=== PATIENT | female | born 1940 | race Hispanic/Latino ===

== ENCOUNTER 2016-10-20 15:24 | Inpatient (IN) | payer MEDICARE, BC ==
[2016-10-20 16:34] LABS: BASO # 0.1 K/uL (0.0-0.2); EOS # 0.2 K/uL (0.0-0.7); EOS % 2.1 % (0.0-4.0); HEMATOCRIT 38.7 % (34.0-47.0); LYMPH # 1.1 K/uL (1.0-4.3); LYMPH % 14.8 % (20.0-40.0); MEAN CELL VOLUME 85.4 fL (81.0-99.0); MEAN CORPUSCULAR HEMOGLOBIN 29.4 pg (27.0-31.0); MEAN CORPUSCULAR HGB CONC 34.4 g/dL (33.0-37.0); MEAN PLATELET VOLUME 8.4 fL (7.2-11.7); MONO # 0.4 K/uL (0.0-0.8); MONO % 5.4 % (0.0-10.0); RED CELL DISTRIBUTION WIDTH 14.8 % (11.5-14.5); WHITE BLOOD COUNT 7.5 K/uL (4.8-10.8)
[2016-10-20 16:44] LABS: CHLORIDE 105 mmol/L (98-107); POTASSIUM 3.7 mmol/L (3.6-5.2); SODIUM 144 mmol/L (132-148)
[2016-10-20 16:46] LABS: ALB/GLOB RATIO 1.3 (1.0-2.1); ALKALINE PHOSPHATASE 115 U/L (38-126); ALT/SGPT 13 U/L (9-52); AST/SGOT 20 U/L (14-36); BILIRUBIN,TOTAL 0.5 mg/dL (0.2-1.3); BLOOD UREA NITROGEN 17 mg/dL (7-17); CARBON DIOXIDE 24 mmol/L (22-30); GFR AFRICAN-AMERICAN > 60; GLUCOSE,RANDOM 106 mg/dL (65-105); TOTAL PROTEIN 6.5 g/dL (6.3-8.3)
[2016-10-20 16:47] LABS: CALCIUM 8.7 mg/dl (8.6-10.4)
[2016-10-20 16:54] LABS: RBC URINE 12 /hpf (0-3); TRANSITIONAL EPITHIAL < 1 /hpf (0-3); URINE BACTERIA MANY (<OCC); URINE BILIRUBIN NEGATIVE (NEGATIVE); URINE BLOOD 2+ (NEGATIVE); URINE COLOR Yellow (YELLOW); URINE GLUCOSE (UA) NORMAL (Normal); URINE KETONE NEGATIVE (NEGATIVE); URINE LEUKOCYTE ESTERASE 3+ Leu/uL (Negative); URINE PROTEIN 1+ mg/dL (NEGATIVE); URINE UROBILINOGEN NORMAL mg/dL (0.2-1.0); WBC CLUMPS FEW /hpf; WBC URINE 173 /hpf (0-5)
[2016-10-20] MEDS ORDERED: Iodixanol 320 MG/ML 100 ML BOTTLE IV ONE (17:13)
--- NOTE | 2016-10-20 17:16 | C.PDOC ---
History Of Present Illness 76 y/o female presents to ED for evaluation after syncopal episode. Patient states she was walking down the stairs and started to feel lightheaded, sat down and syncopized for "several minutes". Patient reports that after she woke up she felt pain on left side of chest radiating to her neck. Last syncopal episode was in 2014. Patient has remote history of PE for which she was on blood thinners, currently resolved and no longer on blodo thinner. Patient denies palpitations, visual changes, sensory changes, facial droop, extremity weakness, headache, SOB. Time Seen by Provider: 10/20/16 15:59 Chief Complaint (Nursing): Syncope History Per: Patient History/Exam Limitations: no limitations Onset/Duration Of Symptoms: Hrs Current Symptoms Are (Timing): Better Activity At Onset Of Symptoms: Sitting Associated Symptoms Preceding Syncopal Episode: Lightheadedness Severity: Mild - Symptoms Of CVA Associated Symptoms: denies: Impaired Speech, Seizure Activity, New Vision Deficit(Left), New Vision Deficit(Right), Decreased Ability To Walk, New Confusion Past Medical History Reviewed: Historical Data, Nursing Documentation, Vital Signs Vital Signs: Last Vital Signs Temp 98.3 F 10/27/16 06:40 Pulse 75 10/27/16 07:40 Resp 20 10/27/16 06:40 BP 145/89 10/27/16 06:40 Pulse Ox 96 10/27/16 06:40 - Medical History PMH: COPD, Kidney Stones, Pulmonary Embolism Family History: States: No Known Family Hx - Social History Hx Alcohol Use: No Hx Substance Use: No - Immunization History Hx Tetanus Toxoid Vaccination: No Hx Influenza Vaccination: No Hx Pneumococcal Vaccination: No Review Of Systems Except As Marked, All Systems Reviewed And Found Negative. Constitutional: Negative for: Fever, Chills Eyes: Negative for: Vision Change Cardiovascular: Positive for: Chest Pain. Negative for: Palpitations Respiratory: Negative for: Cough, Shortness of Breath Gastrointestinal: Negative for: Nausea, Vomiting, Abdominal Pain Musculoskeletal: Positive for: Neck Pain Skin: Negative for: Rash Neurological: Positive for: Other (syncope). Negative for: Weakness, Numbness, Altered Mental Status, Headache, Dizziness Physical Exam - Physical Exam Appears: Well, Non-toxic, No Acute Distress Skin: Normal Color, Warm, Dry, No Rash Head: Atraumatic, Normacephalic Eye(s): bilateral: Normal Inspection, PERRL, EOMI Oral Mucosa: Moist Neck: Normal, Normal ROM, No Midline Cervical Tenderness, No Paracervical Tenderness, No Step Off Deformity, Supple Chest: Symmetrical Cardiovascular: Rhythm Regular Respiratory: Normal Breath Sounds, No Rales, No Rhonchi, No Wheezing Gastrointestinal/Abdominal: Normal Exam, Bowel Sounds, Soft, No Tenderness Extremity: Normal ROM, No Pedal Edema, No Calf Tenderness Extremity: Bilateral: Atraumatic, Normal Color And Temperature, Normal ROM Pulses: Left Dorsalis Pedis: Normal, Right Dorsalis Pedis: Normal Neurological/Psych: Oriented x3, Normal Speech, Normal Cognition, Normal Cranial Nerves, No Cerebellar Signs, Normal Motor, Normal Sensation, Normal Reflexes, No Dysarthria, No Romberg ED Course And Treatment - Laboratory Results Result Diagrams: 10/27/16 07:00 10/27/16 07:00 ECG: Interpreted By Me, Viewed By Me (NSR 88 bpm, normal axis, 1mm ST depression II, III, aVF) ECG Rhythm: Sinus Rhythm ECG Interpretation: Abnormal Rate From EC (bpm) O2 Sat by Pulse Oximetry: 95 (RA) Pulse Ox Interpretation: Normal Progress Note: Blood work, CT head/CTA chest, EKG ordered and reviewed. ASA PO given after CT head (-) for bleed. Reevaluation Time: 18:35 Reassessment Condition: Improved (Patient reassessed, is currently resting comfortably. She states she feels some occasional tingling/soreness on left side of neck/face. She also states for the past several weeks, she sometimes sees different colors (green, red, blue) in her left eye/visual field.) - Physician Consult Information Physician Contacted: Rosa M Do Outcome Of Conversation: Discussed patient with medicine transportation coordinator, she agrees with admission for syncope, abnormal EKG, UTI. Medical Decision Making Medical Decision Making: differential diagnoses considered: cardiogenic syncope, arrythmia, PE, OH/ACS, seizure, dehydration, renal failure, CVA/TIA Disposition - Disposition Disposition: HOSPITALIZED Disposition Time: 18:30 Condition: STABLE - Clinical Impression Clinical Impression: Syncope, UTI (urinary tract infection), Abnormal EKG - Scribe Statement The provider has reviewed the documentation as recorded by the Scribe Neena Trujillo All medical record entries made by the Scribe were at my direction and personally dictated by me. I have reviewed the chart and agree that the record accurately reflects my personal performance of the history, physical exam, medical decision making, and the department course for this patient. I have also personally directed, reviewed, and agree with the discharge instructions and disposition. Decision To Admit - Pt Status Changed To: Hospital Disposition Of: Inpatient - Admit Certification Admit to Inpatient:: After my assessment, the patient will require hospitalization for at least two midnights. This is because of the severity of symptoms shown, intensity of services needed, and/or the medical risk in this patient being treated as an outpatient. - InPatient: Physician Admission Certification: I certify that this patient requires 2 or more midnights of care for the following reason:: see notes - . Bed Request Type: Telemetry Admitting Physician: Rosa M Do Patient Diagnosis: Syncope, UTI (urinary tract infection), Abnormal EKG
--- NOTE | 2016-10-20 17:59 | CT ---
PROCEDURE: CT HEAD WITHOUT CONTRAST. HISTORY: syncope, headache COMPARISON: None available. TECHNIQUE: Axial computed tomography images were obtained through the head/brain without intravenous contrast. Radiation dose: Total exam DLP = 810.83 mGy-cm. This CT exam was performed using one or more of the following dose reduction techniques: Automated exposure control, adjustment of the mA and/or kV according to patient size, and/or use of iterative reconstruction technique. FINDINGS: HEMORRHAGE: No intracranial hemorrhage. BRAIN: Diffuse atrophy with prominence of the ventricles and sulci noted. No mass effect or edema. Intracranial atherosclerotic calcifications. Scattered periventricular and subcortical white matter hypodensities, which are nonspecific, but often seen with chronic microvascular ischemic disease. Please note that MRI with diffusion imaging is more sensitive in the detection of acute ischemic event. VENTRICLES: No hydrocephalus. CALVARIUM: Unremarkable. PARANASAL SINUSES: Unremarkable as visualized. No significant inflammatory changes. MASTOID AIR CELLS: Unremarkable as visualized. No inflammatory changes. OTHER FINDINGS: None. IMPRESSION: Generalized atrophy. Nonspecific white matter changes.
--- NOTE | 2016-10-20 18:11 | CT ---
PROCEDURE: CT Chest with contrast (Pulmonary Angiogram) HISTORY: Syncope. Past medical history of pulmonary embolism COMPARISON: None available. TECHNIQUE: Axial computed tomography images were obtained of the chest in the pulmonary arterial phase of enhancement. Coronal and sagittal reformatted images were created and reviewed. Maximum intensity projection (MIP) reconstructed images in the following planes: Coronal and sagittal projections. Intravenous contrast dose: 100 cc Visipaque 320 Mean Hounsfield unit values in the main pulmonary artery: 356.14 Radiation dose: Total exam DLP = 236.14 mGy-cm. This CT exam was performed using one or more of the following dose reduction techniques: Automated exposure control, adjustment of the mA and/or kV according to patient size, and/or use of iterative reconstruction technique. FINDINGS: PULMONARY ARTERIES: Unremarkable. No pulmonary embolism. AORTA: No acute findings. No thoracic aortic aneurysm. LUNGS: Unremarkable. No nodule, mass or pulmonary consolidation. PLEURAL SPACES: Unremarkable. No effusion or pneuomothorax. HEART: Unremarkable. No cardiomegaly. No significant pericardial effusion. LYMPH NODES: No lymphadenopathy. BONES, CHEST WALL: Unremarkable. No fracture or destructive lesion OTHER FINDINGS: Enlarged, heterogeneous thyroid with thyroid nodules particularly in the left lobe. Intrathoracic extension of the left lobe noted. Elective thyroid ultrasound recommended. IMPRESSION: Unremarkable CT pulmonary angiogram. No pulmonary embolus. Enlarged thyroid gland bilaterally which requires further evaluation electively.
[2016-10-20] MEDS ORDERED: Ciprofloxacin 400mg/200ml D5W 400 MG/200 ML BAG IV STA (18:27)
[2016-10-20] MEDS ORDERED: Ciprofloxacin 400mg/200ml D5W 400 MG/200 ML BAG IVPB ONE (19:56)
[2016-10-20] MEDS ORDERED: Ciprofloxacin 200mg/100ml D5W 100 ML IVPB SCH (22:00)
--- NOTE | 2016-10-20 23:51 | US ---
EXAM: US Soft Tissues Head and Neck, Thyroid CLINICAL HISTORY: 76 years old, female; Abnormal findings; Abnormal radiologic study of neck; Additional info: Thyromegally TECHNIQUE: Real-time ultrasound scan of the thyroid gland and soft tissues of the neck with image documentation. COMPARISON: Reference is made to a CT examination of the chest, performed the same day. FINDINGS: The thyroid gland is enlarged and heterogeneous. The right lobe of the thyroid gland measures 5.2 x 2.8 x 2.2 cm in The left lobe of the thyroid gland measures 6.5 x 3.8 x 2.7 cm. Bilateral nodules are detected. The largest on the right is 15 mm in greatest dimension. This nodule is of mixed echogenicity and demonstrates trace vascularity, without microcalcifications. The largest on the left measures 17 mm in greatest dimension. This nodule is also of mixed echogenicity, without increased vascularity or microcalcifications. The isthmus is unremarkable in echogenicity and size measuring 4.2 mm in anterior posterior dimension IMPRESSION: Enlarged heterogeneous thyroid gland. Nodules of mixed echogenicity bilaterally for which followup may be performed.
[2016-10-21 06:58] LABS: IRON 62 ug/dL (37-170)
[2016-10-21 07:08] LABS: BLOOD UREA NITROGEN 16 mg/dL (7-17); CALCIUM 9.1 mg/dl (8.6-10.4); CARBON DIOXIDE 26 mmol/L (22-30); CHLORIDE 106 mmol/L (98-107); GFR AFRICAN-AMERICAN > 60; GLUCOSE,RANDOM 87 mg/dL (65-105); POTASSIUM 3.4 mmol/L (3.6-5.2); SODIUM 142 mmol/L (132-148)
[2016-10-21 07:26] LABS: HEMATOCRIT 40.1 % (34.0-47.0); MEAN CELL VOLUME 85.1 fL (81.0-99.0); MEAN CORPUSCULAR HEMOGLOBIN 28.1 pg (27.0-31.0); MEAN PLATELET VOLUME 8.3 fL (7.2-11.7); RED CELL DISTRIBUTION WIDTH 14.6 % (11.5-14.5); WHITE BLOOD COUNT 8.6 K/uL (4.8-10.8)
[2016-10-21 07:28] LABS: THYROID STIMULATING HORMONE 8.29 mIU/L (0.46-4.68)
[2016-10-21 08:05] LABS: FOLATE 8.6 ng/mL
[2016-10-21] MEDS: Enoxaparin 60 mg Syringe SC SCH (09:02)
[2016-10-21] MEDS ORDERED: Potassium Chloride 20 mEq ER Tab PO ONE (10:00)
--- NOTE | 2016-10-21 12:16 | CP.PCM.PN ---
Subjective - Date & Time of Evaluation Date of Evaluation: 10/21/16 Time of Evaluation: 12:12 Objective - Vital Signs/Intake and Output Vital Signs (last 24 hours): Temp Pulse Resp BP Pulse Ox 98.2 F 99 H 18 166/90 H 95 10/21/16 08:41 10/21/16 08:41 10/21/16 08:41 10/21/16 08:41 10/21/16 08:41 Intake and Output: 10/21/16 10/21/16 06:59 18:59 Intake Total 120 Balance 120 - Medications Medications: Current Medications Aspirin (Ecotrin) 81 mg PO DAILY [facility] Last Admin: 10/21/16 09:02 Dose: 81 mg Enoxaparin Sodium (Lovenox) 60 mg SC DAILY [facility] Last Admin: 10/21/16 09:02 Dose: 60 mg Ciprofloxacin (Cipro 200mg/100ml D5w) 100 mls @ 67 mls/hr IVPB Q12H [facility] Last Admin: 10/21/16 09:02 Dose: 67 mls/hr Pneumococcal Polyvalent Vaccine (Pneumovax 23 Vaccine) 0.5 ml IM .ONCE ONE Stop: 10/23/16 14:01 - Labs Labs: 10/21/16 06:10 10/21/16 06:10 PT 11.2 SECONDS (9.7-12.2) 10/20/16 16:27 INR 1.0 10/20/16 16:27 APTT 32 SECONDS (21-34) 10/20/16 16:27
--- NOTE | 2016-10-21 13:08 | CP.PCM.CON ---
History of Present Illness - History of Present Illness History of Present Illness: INFECTIOUS DISEASE CONSULT; HPI; 76 y/o female presents to ED for evaluation after syncope episode. Patient states she was walking down the stairs and started to feel lightheaded sat down and syncopized for several minutes. Patient reports that after she woke up she felt pain on left side of chest radiating to neck. Last syncope episode was in 2014 and patient has remote history of PE for which she was on blood thinners and resolved. Patient denies currently being on blood thinners, palpitations, visual changes, sensory changes, facial drooping or any other complaints at this time. Patient gives history off kidney stones and hematuria in 2014. Also states she has past few stones since then. Patient denies any hematuria now or passage of any stones or gravel. Patient also complains of pain left flank region intermittently. Patient also complains off low-grade temperatures and subjective fevers.Patient presently complains off frequency,BUT DENIES ANY DYSURIA.. Patient states she was treated for hematuria and left-sided pyelonephritis at [facility] but failed to follow up with urologist since 2014. Patient was started on IV Cipro 200 mg every 12 hourly by the private M.D on admission after appropriate cultures Infectious disease consultation requested by PMD for urosepsis. urine cultures reported positive for gram-negative rods. Allergy; penicillin-gets rash and shortness of breath. PMH: COPD, Kidney Stones, Pulmonary Embolism Family History: States: No Known Family Hx - Social History Hx Alcohol Use: No Hx Substance Use: No - Immunization History Hx Tetanus Toxoid Vaccination: No Hx Influenza Vaccination: No Hx Pneumococcal Vaccination: No Review of Systems - Constitutional Constitutional: Fever. absent: Chills - EENT Eyes: absent: Change in Vision, Floaters Nose/Mouth/Throat: absent: Dry Mouth - Cardiovascular Cardiovascular: Chest Pain, Syncope - Respiratory Respiratory: absent: Cough, Chest Congestion - Gastrointestinal Gastrointestinal: Abdominal Pain (lleft flank pain intermittently.). absent: Nausea, Vomiting - Genitourinary Genitourinary: Flank Pain, Urinary Frequency, Urinary Urgency, Hx Renal/Bladder Calculi - Reproductive: Female Reproductive:Female: Post Menopausal - Neurological Neurological: Syncope. absent: Dizziness, Headaches - Psychiatric Psychiatric: absent: Anxiety - Hematologic/Lymphatic Hematologic: As Per HPI. absent: Easy Bruising, Lymphadenopathy Past Patient History - Past Medical History & Family History Past Medical History?: Yes - Past Social History Smoking Status: Former Smoker - CARDIAC Hx Cardiac Disorders: No Hx Angina: No Hx Atrial Fibrillation: No Hx Cardia Arrhythmia: No Hx Circulatory Problems: No Hx Congestive Heart Failure: No Hx Heart Attack: No Hx Heart Murmur: No Hx Heart Transplant: No Hx Hypercholesterolemia: No Hx Hypertension: No Hx Hypotension: No Hx Internal Defibrillator: No Hx Mitral Valve Prolapse: No Hx Pacemaker: No Hx Peripheral Edema: No Hx Peripheral Vascular Disease: No - PULMONARY Hx Respiratory Disorders: Yes Hx Asthma: No Hx Bronchitis: No Hx Chronic Obstructive Pulmonary Disease (COPD): Yes Hx Emphysema: No Hx Lung Cancer: No Hx Pneumonia: No Hx Pulmonary Edema: No Hx Pulmonary Embolism: Yes Hx Respiratory Aspiration: No Hx Respiratory Tract Infection: No Hx Sleep Apnea: No Hx Tuberculosis: No - NEUROLOGICAL Hx Neurological Disorder: No Hx Alzheimer's Disease: No HX Cerebrovascular Accident: No Hx Dementia: No Hx Dizziness: No Hx Meningitis: No Hx Migraine: No Hx Multiple Sclerosis: No Hx Paralysis: No Hx Parkinson's Disease: No Hx Seizures: No Hx Syncope: Yes Hx Transient Ischemic Attacks (TIA): No Hx Vertigo: No - HEENT Hx HEENT Problems: No Hx Blind: No Hx Cataracts: No Hx Deafness: No Hx Difficulty Chewing: No Hx Epistaxis: No Hx Glaucoma: No Hx Macular Degeneration: No Hx Sinusitis: No - RENAL Hx Chronic Kidney Disease: Yes Hx Dialysis: No Hx Kidney Stones: Yes Hx Neurogenic Bladder: No Hx Pyelonephritis: No Hx Renal (Kidney) Cancer: No Hx Renal Failure: No - ENDOCRINE/METABOLIC Hx Endocrine Disorders: No Hx Adrenal Cancer: No Hx Diabetes Insipidus: No Hx Diabetes Mellitus Type 1: No Hx Diabetes Mellitus Type 2: No Hx Hyperthyroidism: No Hx Hypothyroidism: No Hx Systemic Lupus Erythematosus: No - HEMATOLOGICAL/ONCOLOGICAL Hx Blood Disorders: No Hx AIDS: No Hx Anemia: No Hx Blood Transfusions: No Hx Blood Transfusion Reaction: No Hx Bruising: No Hx Cancer: No Hx Chemotherapy: No Hx Cirrhosis: No Hx Gum Bleeding: No Hx Hemophilia: No Hx Hepatitis A: No Hx Hepatitis B: No Hx Hepatitis C: No Hx Human Immunodeficiency Virus (HIV): No Hx Leukemia: No Hx Metastesis: No Hx Shingles: No Hx Sickle Cell Disease: No Hx Unexplained Bleeding: No Hx von Willebrand's Disease: No - INTEGUMENTARY Hx Dermatological Problems: No Hx Basil Cell: No Hx Kang: No Hx Cellulitis: No Hx Eczema: No Hx Melanoma: No Hx Psoriasis: No Hx Squamous Cell: No - MUSCULOSKELETAL/RHEUMATOLOGICAL Hx Musculoskeletal Disorders: No Hx Arthritis: No Hx Back Pain: No Hx Degenerative Joint Disease: No Hx Falls: Yes Hx Fractures: No Hx Gout: No Hx Herniated Disk: No Hx Myasthenia Gravis: No Hx Osteoarthritis: No Hx Osteomyelitis: No Hx Osteoporosis: No Hx Rhabdomyolysis: No Hx Rheumatoid Arthritis: No Hx Spinal Stenosis: No Hx Unsteady Gait: No - GASTROINTESTINAL Hx Gastrointestinal Disorders: No Hx Bowel Surgery: No Hx Clostridium Difficile: No Hx Colitis: No Hx Colostomy: No Hx Constipation: No Hx Crohn's Disease: No Hx Diarrhea: No Hx Diverticulitis: No Hx Esophageal Varices: No Hx Fatty Liver Disease: No Hx Gall Bladder Disease: No Hx Gastritis: No Hx Gastroesophageal Reflux: No Hx Hemorrhoids: No Hx Ileostomy: No Hx Irritable Bowel: No Hx Liver Failure: No Hx Nausea: No Hx Pancreatitis: No HX Swallowing Problems: No Hx Ulcer: No Hx Vomiting: No - GENITOURINARY/GYNECOLOGICAL Hx Genitourinary Disorders: No Hx Bladder Cancer: No Hx Bladder Stone: No Hx Cervical Cancer: No Hx Hematuria: No Hx Incontinence: No Hx Ovarian Cancer: No Hx Postmenopausal Bleeding: No Hx Reproductive Disorders: No Hx Sexually Transmitted Disorders: No Hx Uterine Cancer: No Hx Urinary Tract Infection: No - PSYCHIATRIC Hx Psychophysiologic Disorder: No Hx Anxiety: No Hx Bipolar Disorder: No Hx Depression: No Hx Emotional Abuse: No Hx Hallucinations: No Hx Panic Symptoms: No Hx Paranoia: No Hx Post Traumatic Stress Disorder: No Hx Psychosis: No Hx Physical Abuse: No Hx Schizophrenia: No Hx Sexual Abuse: No Hx Substance Use: No - SURGICAL HISTORY Hx Surgeries: No Hx Abdominal Aortic Aneurysm Repair: No Hx Amputation: No Hx Angiogram: No Hx Angioplasty: No Hx Appendectomy: No Hx Arteriovenous Shunt: No Hx Arthroscopy: No Hx Bile Duct Stent: No Hx Breast Biopsy: No Hx Cataract Extraction: No Hx Cardiac Catheterization: No Hx Carotid Endarterectomy: No Hx Section: No Hx Cholecystectomy: No Hx Coronary Artery Bypass Graft: No Hx Coronary Stent: No Hx Dilation and Curettage: No Hx Eye Surgery: No Hx Femoral-Popliteal Bypass Graft: No Hx Gastric Bypass Surgery: No Hx Herniorrhaphy: No Hx Hysterectomy: No Hx Joint Replacement: No Hx Kidney Transplant: No Hx Liver Transplant: No Hx Mastectomy: No Hx Musculoskeletal Surgery: No Hx Open Heart Surgery: No Hx Open Reduction Internal Fixation: No Hx Orthopedic Surgery: No Hx Parathyroidectomy: No Hx Penile Implant: No Hx Pulmonary Surgery: No Hx Splenectomy: No Hx Thyroidectomy: No Hx Tonsillectomy: No Hx Tubal Ligation: No Hx Valve Replacement: No Hx Vascular Surgery: No Hx Vascular Access Device: No - ANESTHESIA Hx Anesthesia: Yes Hx Anesthesia Reactions: No Hx Malignant Hyperthermia: No Has any member of the family had a problem w/ anesthesia?: No Meds Allergies/Adverse Reactions: Allergies Allergy/AdvReac Type Severity Reaction Status Date / Time Penicillins Allergy ANAPHYLAXIS Verified 10/20/16 15:36 - Medications Medications: Current Medications Aspirin (Ecotrin) 81 mg PO DAILY [facility] Last Admin: 10/21/16 09:02 Dose: 81 mg Enoxaparin Sodium (Lovenox) 60 mg SC DAILY [facility] Last Admin: 10/21/16 09:02 Dose: 60 mg Ciprofloxacin (Cipro 200mg/100ml D5w) 100 mls @ 67 mls/hr IVPB Q12H [facility] Last Admin: 10/21/16 09:02 Dose: 67 mls/hr Pneumococcal Polyvalent Vaccine (Pneumovax 23 Vaccine) 0.5 ml IM .ONCE ONE Stop: 10/23/16 14:01 Physical Exam - Constitutional Appears: No Acute Distress - Head Exam Head Exam: NORMAL INSPECTION - Eye Exam Eye Exam: EOMI, PERRL - ENT Exam ENT Exam: Mucous Membranes Moist - Neck Exam Neck exam: Positive for: Normal Inspection - Respiratory Exam Respiratory Exam: Clear to Auscultation Bilateral, NORMAL BREATHING PATTERN - Cardiovascular Exam Cardiovascular Exam: REGULAR RHYTHM, +S1, +S2 - GI/Abdominal Exam GI & Abdominal Exam: Normal Bowel Sounds, Soft, Tenderness (left flank on deep palpation.) - Extremities Exam Extremities exam: Positive for: normal capillary refill, pedal pulses present. Negative for: calf tenderness, pedal edema - Back Exam Back exam: CVA tenderness (L) - Neurological Exam Neurological exam: Alert, CN II-XII Intact, Oriented x3, Reflexes Normal - Psychiatric Exam Psychiatric exam: Normal Mood - Skin Skin Exam: Normal Color, Warm Results - Vital Signs Recent Vital Signs: Last Vital Signs Temp 98.2 F 10/21/16 08:41 Pulse 99 H 10/21/16 08:41 Resp 18 10/21/16 08:41 BP 166/90 H 10/21/16 08:41 Pulse Ox 95 10/21/16 08:41 - Labs Result Diagrams: 10/21/16 06:10 10/21/16 06:10 Labs: Laboratory Results - last 24 hr 10/20/16 10/21/16 10/21/16 22:16 06:10 06:10 WBC RBC Hgb Hct MCV MCH MCHC RDW Plt Count MPV Sodium Potassium Chloride Carbon Dioxide Anion Gap BUN Creatinine Est GFR ( Amer) Est GFR (Non-Af Amer) POC Glucose (mg/dL) 90 Random Glucose Hemoglobin A1c Calcium Iron 62 TIBC 286 % Saturation 22 Triglycerides 68 Cholesterol 129 LDL Cholesterol Direct 71 HDL Cholesterol 45 Vitamin B12 235 L Folate 8.6 TSH 3rd Generation 10/21/16 10/21/16 10/21/16 06:10 06:10 06:10 WBC 8.6 RBC 4.71 Hgb 13.2 Hct 40.1 MCV 85.1 MCH 28.1 MCHC 33.0 RDW 14.6 H Plt Count 224 MPV 8.3 Sodium 142 Potassium 3.4 L Chloride 106 Carbon Dioxide 26 Anion Gap 13 BUN 16 Creatinine 0.9 Est GFR ( Amer) > 60 Est GFR (Non-Af Amer) > 60 POC Glucose (mg/dL) Random Glucose 87 Hemoglobin A1c 5.2 Calcium 9.1 Iron TIBC % Saturation Triglycerides Cholesterol LDL Cholesterol Direct HDL Cholesterol Vitamin B12 Folate TSH 3rd Generation 8.29 H - Imaging and Cardiology CT scan - head Status: Report reviewed by me (see report.) Assessment & Plan (1) Syncope and collapse Assessment and Plan: CT head noted-generalized atrophy. Patient seen by neurologist. W/U IN PROGRESS FOR SYNCOPE. pATIENT FOR mri OF THE BRAIN. Status: Acute (2) Pyelonephritis Assessment and Plan: URINE CULTURE 10/20/16 +VE GNR ( IDENTIFICATION PENDING ). DC IV CIPRO. START iv aZACTAM 1 G EVERY 8 HOURLY FOR BROADER GRAM-NEGATIVE COVERAGE . fOLLOW-UP CULTURES TO ADJUST ANTIBIOTICS Status: Acute (3) UTI (urinary tract infection), bacterial Status: Acute (4) Kidney stones Assessment and Plan: ABDOMINAL/RENAL US rule OUT KIDNEY STONES/HYDRONEPHROSIS. Status: Acute (5) History of pulmonary embolism Assessment and Plan: patient had history of pulmonary embolism in 2014. States she was on blood thinners for some time and then discontinued. Status: Acute
[2016-10-21] MEDS: Aztreonam 1 GM in Sodium Chloride 0.9% 100 ML IVPB SCH ×2 (14:02→22:45)
--- NOTE | 2016-10-21 19:19 | CARD ---
APPROVED REPORT EKG Measurement Heart [id number] ID [id number] <Conclusion> Normal sinus rhythm with sinus arrhythmia Nonspecific ST abnormality Abnormal ECG
--- NOTE | 2016-10-22 00:16 | CON ---
NEUROLOGY CONSULTATION REPORT REASON FOR CONSULTATION: Episode of passing out. HISTORY OF PRESENT ILLNESS: The patient is a 76-year-old female, who is here for evaluation of episode of passing out. The patient apparently was walking down the stairs, and all of a sudden, she felt lightheaded and felt everything is draining down her body and she passed out. She was unconscious for a brief period of time. She denied any urinary incontinence or tongue biting. She denied any focal weakness in arms or legs. According to the patient, she had an another episode of passing out in 2014. She denied any chest pain or palpitations associated with episode of passing out. Denies any other complaints. REVIEW OF SYSTEMS: Denies any headache, dizziness, chest pain, shortness of breath, abdominal pain, constipation, diarrhea, dysuria, pyuria, cough, or sputum production. PAST MEDICAL HISTORY: None. HOME MEDICATION: None. ALLERGIES: NO KNOWN DRUG ALLERGIES. SOCIAL HISTORY: Denies current smoking. She is a former smoker. Denies use of alcohol or illicit drugs. FAMILY HISTORY: Reviewed and noncontributory to the case. PHYSICAL EXAMINATION GENERAL: The patient is an elderly female sitting, in no acute distress. VITAL SIGNS: Blood pressure is 166/90, heart rate is 99 per minute, breathing at a rate 16 per minute, and temperature is 98.2 degrees Fahrenheit. HEENT: Head is normocephalic, atraumatic. NECK: Supple. There are no carotid bruits. CARDIOVASCULAR: S1 and S2 audible. No murmurs. LUNGS: Clear. ABDOMEN: Soft and nontender with bowel sounds present. NEUROLOGIC: Mental Status: The patient is awake, alert and oriented to time, place and person. Speech is fluent. Naming and repetition are normal. Memory examination are intact. Cranial Nerve Examination: Pupils are 3 mm bilaterally, reactive to light. Visual chahal are full. Extraocular movements are intact. There is no facial asymmetry. Palate is upgoing bilaterally, and tongue is midline. Motor Examination: Tone is normal, and power is 4-5/5 bilaterally, and all extremity reflexes 1+ and symmetrical. Plantars downgoing bilaterally. Cerebellar examination: [id number] shows no dysmetria. Gait is narrow based. Romberg is negative. Sensory examination is intact to soft touch and pin prick. LABORATORY DATA: Labs reviewed shows WBC of 8.6, hemoglobin 13.2, hematocrit 40.1 and platelets of 224. INR is 1.0. Sodium is 142, potassium 3.4, chloride of 106, carbon dioxide 26, BUN of 16 and creatinine of 0.9 and glucose of 87. She had urinalysis done which shows WBC of 173. She had a CT scan of the head done, which shows generalized atrophy, nonspecific white matter changes. IMPRESSION: 1. Syncope, rule out seizure versus cardiac arrhythmias. 2. Urinary tract infection. RECOMMENDATIONS: 1. The patient to have MRI of the brain without contrast. 2. The patient is also to have electroencephalogram. 3. The patient to have cardiac monitoring to rule out any cardiac arrhythmias. 4. The patient will be continued on antibiotics for underlying urinary tract infection. 5. Please continue other treatment and supportive care. Thank you for the opportunity to participate in the care of this patient. Abdulaziz Mcdonnell MD
--- NOTE | 2016-10-22 01:20 | CP.PCM.HP ---
History of Present Illness - History of Present Illness History of Present Illness: 10/21/16 History Of Present Illness 76 y/o female presents to ED for evaluation after syncope episode. Patient states she was walking down the stairs and started to feel lightheaded sat down and syncopized for several minutes. Patient reports that after she woke up she felt pain on left side of chest radiating to neck. Last syncope episode was in 2014 and patient has remote history of PE for which she was on blood thinners and resolved. Patient denies currently being on blood thinners, palpitations, visual changes, sensory changes, facial drooping or any other complaints at this time. Present on Admission - Present on Admission Any Indicators Present on Admission: No History of DVT/PE: Yes Review of Systems - Constitutional Constitutional: As Per HPI - EENT Eyes: As Per HPI Ears: As Per HPI - Breasts Breasts: As Per HPI - Cardiovascular Cardiovascular: As Per HPI - Respiratory Respiratory: As Per HPI - Genitourinary Genitourinary: As Per HPI - Integumentary Integumentary: As Per HPI - Neurological Neurological: As Per HPI - Psychiatric Psychiatric: As Per HPI - Endocrine Endocrine: As Per HPI - Hematologic/Lymphatic Hematologic: As Per HPI Past Patient History - Past Medical History & Family History Past Medical History?: Yes - Past Social History Smoking Status: Former Smoker - CARDIAC Hx Cardiac Disorders: No Hx Angina: No Hx Atrial Fibrillation: No Hx Cardia Arrhythmia: No Hx Circulatory Problems: No Hx Congestive Heart Failure: No Hx Heart Attack: No Hx Heart Murmur: No Hx Heart Transplant: No Hx Hypercholesterolemia: No Hx Hypertension: No Hx Hypotension: No Hx Internal Defibrillator: No Hx Mitral Valve Prolapse: No Hx Pacemaker: No Hx Peripheral Edema: No Hx Peripheral Vascular Disease: No - PULMONARY Hx Respiratory Disorders: Yes Hx Asthma: No Hx Bronchitis: No Hx Chronic Obstructive Pulmonary Disease (COPD): Yes Hx Emphysema: No Hx Lung Cancer: No Hx Pneumonia: No Hx Pulmonary Edema: No Hx Pulmonary Embolism: Yes Hx Respiratory Aspiration: No Hx Respiratory Tract Infection: No Hx Sleep Apnea: No Hx Tuberculosis: No - NEUROLOGICAL Hx Neurological Disorder: No Hx Alzheimer's Disease: No HX Cerebrovascular Accident: No Hx Dementia: No Hx Dizziness: No Hx Meningitis: No Hx Migraine: No Hx Multiple Sclerosis: No Hx Paralysis: No Hx Parkinson's Disease: No Hx Seizures: No Hx Syncope: Yes Hx Transient Ischemic Attacks (TIA): No Hx Vertigo: No - HEENT Hx HEENT Problems: No Hx Blind: No Hx Cataracts: No Hx Deafness: No Hx Difficulty Chewing: No Hx Epistaxis: No Hx Glaucoma: No Hx Macular Degeneration: No Hx Sinusitis: No - RENAL Hx Chronic Kidney Disease: Yes Hx Dialysis: No Hx Kidney Stones: Yes Hx Neurogenic Bladder: No Hx Pyelonephritis: No Hx Renal (Kidney) Cancer: No Hx Renal Failure: No - ENDOCRINE/METABOLIC Hx Endocrine Disorders: No Hx Adrenal Cancer: No Hx Diabetes Insipidus: No Hx Diabetes Mellitus Type 1: No Hx Diabetes Mellitus Type 2: No Hx Hyperthyroidism: No Hx Hypothyroidism: No Hx Systemic Lupus Erythematosus: No - HEMATOLOGICAL/ONCOLOGICAL Hx Blood Disorders: No Hx AIDS: No Hx Anemia: No Hx Blood Transfusions: No Hx Blood Transfusion Reaction: No Hx Bruising: No Hx Cancer: No Hx Chemotherapy: No Hx Cirrhosis: No Hx Gum Bleeding: No Hx Hemophilia: No Hx Hepatitis A: No Hx Hepatitis B: No Hx Hepatitis C: No Hx Human Immunodeficiency Virus (HIV): No Hx Leukemia: No Hx Metastesis: No Hx Shingles: No Hx Sickle Cell Disease: No Hx Unexplained Bleeding: No Hx von Willebrand's Disease: No - INTEGUMENTARY Hx Dermatological Problems: No Hx Basil Cell: No Hx Kang: No Hx Cellulitis: No Hx Eczema: No Hx Melanoma: No Hx Psoriasis: No Hx Squamous Cell: No - MUSCULOSKELETAL/RHEUMATOLOGICAL Hx Musculoskeletal Disorders: No Hx Arthritis: No Hx Back Pain: No Hx Degenerative Joint Disease: No Hx Falls: Yes Hx Fractures: No Hx Gout: No Hx Herniated Disk: No Hx Myasthenia Gravis: No Hx Osteoarthritis: No Hx Osteomyelitis: No Hx Osteoporosis: No Hx Rhabdomyolysis: No Hx Rheumatoid Arthritis: No Hx Spinal Stenosis: No Hx Unsteady Gait: No - GASTROINTESTINAL Hx Gastrointestinal Disorders: No Hx Bowel Surgery: No Hx Clostridium Difficile: No Hx Colitis: No Hx Colostomy: No Hx Constipation: No Hx Crohn's Disease: No Hx Diarrhea: No Hx Diverticulitis: No Hx Esophageal Varices: No Hx Fatty Liver Disease: No Hx Gall Bladder Disease: No Hx Gastritis: No Hx Gastroesophageal Reflux: No Hx Hemorrhoids: No Hx Ileostomy: No Hx Irritable Bowel: No Hx Liver Failure: No Hx Nausea: No Hx Pancreatitis: No HX Swallowing Problems: No Hx Ulcer: No Hx Vomiting: No - GENITOURINARY/GYNECOLOGICAL Hx Genitourinary Disorders: No Hx Bladder Cancer: No Hx Bladder Stone: No Hx Cervical Cancer: No Hx Hematuria: No Hx Incontinence: No Hx Ovarian Cancer: No Hx Postmenopausal Bleeding: No Hx Reproductive Disorders: No Hx Sexually Transmitted Disorders: No Hx Uterine Cancer: No Hx Urinary Tract Infection: No - PSYCHIATRIC Hx Psychophysiologic Disorder: No Hx Anxiety: No Hx Bipolar Disorder: No Hx Depression: No Hx Emotional Abuse: No Hx Hallucinations: No Hx Panic Symptoms: No Hx Paranoia: No Hx Post Traumatic Stress Disorder: No Hx Psychosis: No Hx Physical Abuse: No Hx Schizophrenia: No Hx Sexual Abuse: No Hx Substance Use: No - SURGICAL HISTORY Hx Surgeries: No Hx Abdominal Aortic Aneurysm Repair: No Hx Amputation: No Hx Angiogram: No Hx Angioplasty: No Hx Appendectomy: No Hx Arteriovenous Shunt: No Hx Arthroscopy: No Hx Bile Duct Stent: No Hx Breast Biopsy: No Hx Cataract Extraction: No Hx Cardiac Catheterization: No Hx Carotid Endarterectomy: No Hx Section: No Hx Cholecystectomy: No Hx Coronary Artery Bypass Graft: No Hx Coronary Stent: No Hx Dilation and Curettage: No Hx Eye Surgery: No Hx Femoral-Popliteal Bypass Graft: No Hx Gastric Bypass Surgery: No Hx Herniorrhaphy: No Hx Hysterectomy: No Hx Joint Replacement: No Hx Kidney Transplant: No Hx Liver Transplant: No Hx Mastectomy: No Hx Musculoskeletal Surgery: No Hx Open Heart Surgery: No Hx Open Reduction Internal Fixation: No Hx Orthopedic Surgery: No Hx Parathyroidectomy: No Hx Penile Implant: No Hx Pulmonary Surgery: No Hx Splenectomy: No Hx Thyroidectomy: No Hx Tonsillectomy: No Hx Tubal Ligation: No Hx Valve Replacement: No Hx Vascular Surgery: No Hx Vascular Access Device: No - ANESTHESIA Hx Anesthesia: Yes Hx Anesthesia Reactions: No Hx Malignant Hyperthermia: No Has any member of the family had a problem w/ anesthesia?: No Meds Allergies/Adverse Reactions: Allergies Allergy/AdvReac Type Severity Reaction Status Date / Time Penicillins Allergy ANAPHYLAXIS Verified 10/20/16 15:36 Physical Exam - Constitutional Appears: Well - Head Exam Head Exam: ATRAUMATIC, NORMAL INSPECTION, NORMOCEPHALIC - Eye Exam Eye Exam: EOMI, Normal appearance, PERRL Pupil Exam: NORMAL ACCOMODATION, PERRL - ENT Exam ENT Exam: Mucous Membranes Moist, Normal Exam - Neck Exam Neck exam: Positive for: Normal Inspection - Respiratory Exam Respiratory Exam: Clear to Auscultation Bilateral, NORMAL BREATHING PATTERN - Cardiovascular Exam Cardiovascular Exam: REGULAR RHYTHM - GI/Abdominal Exam GI & Abdominal Exam: Normal Bowel Sounds, Soft. absent: Tenderness - Rectal Exam Rectal Exam: NORMAL INSPECTION - Exam Exam: Circumcision, NORMAL INSPECTION External exam: NORMAL EXTERNAL EXAM Speculum exam: NORMAL SPECULUM EXAM Bimanual exam: NORMAL BIMANUAL EXAM - Extremities Exam Extremities exam: Positive for: normal inspection - Back Exam Back exam: NORMAL INSPECTION - Neurological Exam Neurological exam: Alert, CN II-XII Intact, Normal Gait, Oriented x3, Reflexes Normal - Psychiatric Exam Psychiatric exam: Normal Affect, Normal Mood - Skin Skin Exam: Dry, Intact, Normal Color, Warm Results - Vital Signs Recent Vital Signs: Last Vital Signs Temp 98.5 F 10/21/16 23:40 Pulse 90 10/21/16 23:40 Resp 20 10/21/16 23:40 BP 145/76 10/21/16 23:40 Pulse Ox 95 10/21/16 23:40 - Labs Result Diagrams: 10/21/16 06:10 10/21/16 06:10 Labs: Laboratory Results - last 24 hr 10/21/16 10/21/16 10/21/16 06:10 06:10 06:10 WBC RBC Hgb Hct MCV MCH MCHC RDW Plt Count MPV Sodium Potassium Chloride Carbon Dioxide Anion Gap BUN Creatinine Est GFR ( Amer) Est GFR (Non-Af Amer) Random Glucose Hemoglobin A1c 5.2 Calcium Iron 62 TIBC 286 % Saturation 22 Triglycerides 68 Cholesterol 129 LDL Cholesterol Direct 71 HDL Cholesterol 45 Vitamin B12 235 L Folate 8.6 TSH 3rd Generation 10/21/16 10/21/16 06:10 06:10 WBC 8.6 RBC 4.71 Hgb 13.2 Hct 40.1 MCV 85.1 MCH 28.1 MCHC 33.0 RDW 14.6 H Plt Count 224 MPV 8.3 Sodium 142 Potassium 3.4 L Chloride 106 Carbon Dioxide 26 Anion Gap 13 BUN 16 Creatinine 0.9 Est GFR ( Amer) > 60 Est GFR (Non-Af Amer) > 60 Random Glucose 87 Hemoglobin A1c Calcium 9.1 Iron TIBC % Saturation Triglycerides Cholesterol LDL Cholesterol Direct HDL Cholesterol Vitamin B12 Folate TSH 3rd Generation 8.29 H Assessment & Plan - Assessment and Plan (Free Text) Assessment: 76 y/o female presents to ED for evaluation after syncope episode. Patient states she was walking down the stairs and started to feel lightheaded sat down and syncopized for several minutes. Patient reports that after she woke up she felt pain on left side of chest radiating to neck. Last syncope episode was in 2014 and patient has remote history of PE for which she was on blood thinners and resolved. Patient denies currently being on blood thinners, palpitations, visual changes, sensory changes, facial drooping or any other complaints at this time. Patient gives history off kidney stones and hematuria in 2014. Also states she has past few stones since then. Patient denies any hematuria now or passage of any stones or gravel. Patient also complains of pain left flank region intermittently. Patient also complains off low-grade temperatures and subjective fevers.Patient presently complains off frequency,BUT DENIES ANY DYSURIA.. Patient states she was treated for hematuria and left-sided pyelonephritis at [facility] but failed to follow up with urologist since 2014. Patient was started on IV Cipro 200 mg every 12 hourly by the private [facility] on admission after appropriate cultures pt had urosepsis. urine cultures reported positive for gram-negative rods.waiting for neuro in put
--- NOTE | 2016-10-22 02:42 | CP.PCM.CON ---
History of Present Illness - History of Present Illness History of Present Illness: consultation for evaluation of syncope and chest pain HPI : Ms. Lazaro is a 76-year-old female with past medical history significant for PE that was diagnosed back in November 23, 2014 renal stones and UTI who had a episode of syncope back in November 23, 2014 for which she was admitted to [facility]. She was treated with Coumadin therapy for 6-8 month and subsequently stopped taking Coumadin on her own. According to the patient she had a similar episode while she were walking down the stairs which she felt lightheaded dizzy and almost fell down and accompanied had a mild chest discomfort radiating to the neck area. She has 40- pack-year history of smoking and history of COPD quit smoking back in 2005. Maternal family has history of premature coronary artery disease. At baseline she has NYHA failure class II/III dyspnea. Review of Systems - Review of Systems All systems: reviewed and no additional remarkable complaints except Review of Systems: +ve syncope +ve chest pain +ve HALL +ve for COPD / wheezing - Constitutional Constitutional: As Per HPI, Fatigue, Lethargy - EENT Eyes: As Per HPI. absent: Blind Spots, Blurred Vision, Change in Vision, Decreased Night Vision, Diplopia, Discharge, Dry Eye, Exophthalmos, Floaters, Irritation, Itchy Eyes, Loss of Peripheral Vision, Pain, Photophobia, Requires Corrective Lenses, Sees Flashes, Spots in Vision, Tunnel Vision, Other Visual Disturbances, Loss of Vision, Other Ears: As Per HPI. absent: Decreased Hearing, Ear Discharge, Ear Pain, Tinnitus , Abnormal Hearing, Disequilibrium, Dizziness, Other Nose/Mouth/Throat: As Per HPI. absent: Epistaxis, Nasal Congestion, Nasal Discharge, Nasal Obstruction, Nasal Trauma, Nose Pain, Post Nasal Drip, Sinus Pain, Sinus Pressure, Bleeding Gums, Change in Voice, Dental Pain, Dry Mouth, Dysphagia, Halitosis, Hoarsness, Lip Swelling, Mouth Lesions, Mouth Pain, Odynophagia, Sore Throat, Throat Swelling, Tongue Swelling, Facial Pain, Neck Pain, Neck Mass, Other - Breasts Breasts: As Per HPI. absent: Change in Shape, Mass, Pain, Nipple Discharge, Nipple Inversion, Skin Changes, Swelling, Other - Cardiovascular Cardiovascular: As Per HPI, Dyspnea on Exertion. absent: Acrocyanosis, Chest Pain, Chest Pain at Rest, Chest Pain with Activity, Claudication, Diaphoresis, Dyspnea, Edema, Irregular Heart Rhythm, Pain Radiating to Arm/Neck/Jaw, Leg Edema, Leg Ulcers, Lightheadedness, Orthopnea, Palpitations, Paroxysmal Nocturnal Dyspnea, Pedal Edema, Radiating Pain, Rapid Heart Rate, Slow Heart Rate, Syncope, Other - Respiratory Respiratory: Dyspnea, Wheezing. absent: As Per HPI, Cough, Hemoptysis, Dyspnea on Exertion, Snoring, Stridor, Pain on Inspiration, Chest Congestion, Excessive Mucous Production, Change in Mucous Color, Pain with Coughing, Other - Gastrointestinal Gastrointestinal: As Per HPI. absent: Abdominal Pain, Belching, Bloating, Change in Bowel Habits, Change in Stool Character, Coffee Ground Emesis, Constipation, Cramping, Diarrhea, Dyspepsia, Dysphagia, Early Satiety, Excessive Flatus, Fecal Incontinence, Heartburn, Hematemesis, Hematochezia, Loose Stools, Melena, Nausea, Odynophagia, Temesmus, Vomiting, Other - Genitourinary Genitourinary: As Per HPI. absent: Change in Urinary Stream, Difficulty Urinating, Dysuria, Flank Pain, Hematuria, Pyuria, Nocturia, Urinary Incontinence, Urinary Frequency, Urinary Hesitance, Urinary Urgency, Voiding Freq/Small Amts, Freq UTI, Hx Renal/Bladder Calculi, Hx /Renal Surgery, Bladder Distension, Other - Reproductive: Female Reproductive:Female: As Per HPI - Musculoskeletal Musculoskeletal: As Per HPI, Arthralgias, Muscle Weakness. absent: Abnormal Gait, Atrophy, Back Pain, Deformity, Joint Swelling, Limited Range of Motion, Loss of Height, Muscle Cramps, Myalgias, Neck Pain, Numbness, Radiating Pain into Limb, Stiffness, Tingling, Other - Integumentary Integumentary: As Per HPI. absent: Acne, Alopecia, Bleeding Lesions, Change in Hair, Change in Nails, Change in Pigmentation, Changing Lesions, Dry Skin, Erythema, Furuncle, Hirsutism, Lesions, New Lesions, Non-Healing Lesions, Photosensitivity, Pruritus, Rash, Skin Pain, Skin Ulcer, Sores, Striae, Swelling , Unusual Bruising, Wounds, Jaundice, Other - Neurological Neurological: As Per HPI. absent: Abnormal Gait, Abnormal Hearing, Abnormal Movements, Abnormal Speech, Behavioral Changes, Burning Sensations, Confusion, Convulsions, Disequilibrium, Dizziness, Numbness, Focal Weakness, Frequent Falls , Headaches, Lack of Coordination, Loss of Vision, Memory Loss, Paresthesias, Radicular Pain, Restless Legs, Sensory Deficit, Syncope, Tingling, Tremor, Vertigo, Weakness, Other Visual Disturbances, Other - Psychiatric Psychiatric: As Per HPI. absent: Abnormal Sleep Pattern, Anhedonia, Anxiety, Auditory Hallucinations, Behavioral Changes, Change in Appetite, Change in Libido, Confusion, Depression, Difficulty Concentrating, Hallucinations, Homicidal Ideation, Hopelessness, Irritability, Memory Loss, Mood Swings, Panic Attacks, Paranoia, Suicidal Ideation, Visual Hallucinations, Tactile Hallucinations, Other - Endocrine Endocrine: As Per HPI. absent: Change in Body Appearance, Change in Libido, Cold Intolorance, Deepening of Voice, Excessive Sweating, Fatigue, Flushing, Heat Intolorance, Increase in Ring/Shoe/Hat Size, Palpitations, Polydipsia, Polyphagia, Polyuria, Other - Hematologic/Lymphatic Hematologic: As Per HPI. absent: Easy Bleeding, Easy Bruising, Lymphadenopathy , Other Past Patient History - Past Medical History & Family History Past Medical History?: Yes Pertinent Family History: Mother of CAD brother lives in [place] - Past Social History Smoking Status: Former Smoker - CARDIAC Hx Cardiac Disorders: No Hx Angina: No Hx Atrial Fibrillation: No Hx Cardia Arrhythmia: No Hx Circulatory Problems: No Hx Congestive Heart Failure: No Hx Heart Attack: No Hx Heart Murmur: No Hx Heart Transplant: No Hx Hypercholesterolemia: No Hx Hypertension: No Hx Hypotension: No Hx Internal Defibrillator: No Hx Mitral Valve Prolapse: No Hx Pacemaker: No Hx Peripheral Edema: No Hx Peripheral Vascular Disease: No - PULMONARY Hx Respiratory Disorders: Yes Hx Asthma: No Hx Bronchitis: No Hx Chronic Obstructive Pulmonary Disease (COPD): Yes Hx Emphysema: No Hx Lung Cancer: No Hx Pneumonia: No Hx Pulmonary Edema: No Hx Pulmonary Embolism: Yes Hx Respiratory Aspiration: No Hx Respiratory Tract Infection: No Hx Sleep Apnea: No Hx Tuberculosis: No - NEUROLOGICAL Hx Neurological Disorder: No Hx Alzheimer's Disease: No HX Cerebrovascular Accident: No Hx Dementia: No Hx Dizziness: No Hx Meningitis: No Hx Migraine: No Hx Multiple Sclerosis: No Hx Paralysis: No Hx Parkinson's Disease: No Hx Seizures: No Hx Syncope: Yes Hx Transient Ischemic Attacks (TIA): No Hx Vertigo: No - HEENT Hx HEENT Problems: No Hx Blind: No Hx Cataracts: No Hx Deafness: No Hx Difficulty Chewing: No Hx Epistaxis: No Hx Glaucoma: No Hx Macular Degeneration: No Hx Sinusitis: No - RENAL Hx Chronic Kidney Disease: Yes Hx Dialysis: No Hx Kidney Stones: Yes Hx Neurogenic Bladder: No Hx Pyelonephritis: No Hx Renal (Kidney) Cancer: No Hx Renal Failure: No - ENDOCRINE/METABOLIC Hx Endocrine Disorders: No Hx Adrenal Cancer: No Hx Diabetes Insipidus: No Hx Diabetes Mellitus Type 1: No Hx Diabetes Mellitus Type 2: No Hx Hyperthyroidism: No Hx Hypothyroidism: No Hx Systemic Lupus Erythematosus: No - HEMATOLOGICAL/ONCOLOGICAL Hx Blood Disorders: No Hx AIDS: No Hx Anemia: No Hx Blood Transfusions: No Hx Blood Transfusion Reaction: No Hx Bruising: No Hx Cancer: No Hx Chemotherapy: No Hx Cirrhosis: No Hx Gum Bleeding: No Hx Hemophilia: No Hx Hepatitis A: No Hx Hepatitis B: No Hx Hepatitis C: No Hx Human Immunodeficiency Virus (HIV): No Hx Leukemia: No Hx Metastesis: No Hx Shingles: No Hx Sickle Cell Disease: No Hx Unexplained Bleeding: No Hx von Willebrand's Disease: No - INTEGUMENTARY Hx Dermatological Problems: No Hx Basil Cell: No Hx Kang: No Hx Cellulitis: No Hx Eczema: No Hx Melanoma: No Hx Psoriasis: No Hx Squamous Cell: No - MUSCULOSKELETAL/RHEUMATOLOGICAL Hx Musculoskeletal Disorders: No Hx Arthritis: No Hx Back Pain: No Hx Degenerative Joint Disease: No Hx Falls: Yes Hx Fractures: No Hx Gout: No Hx Herniated Disk: No Hx Myasthenia Gravis: No Hx Osteoarthritis: No Hx Osteomyelitis: No Hx Osteoporosis: No Hx Rhabdomyolysis: No Hx Rheumatoid Arthritis: No Hx Spinal Stenosis: No Hx Unsteady Gait: No - GASTROINTESTINAL Hx Gastrointestinal Disorders: No Hx Bowel Surgery: No Hx Clostridium Difficile: No Hx Colitis: No Hx Colostomy: No Hx Constipation: No Hx Crohn's Disease: No Hx Diarrhea: No Hx Diverticulitis: No Hx Esophageal Varices: No Hx Fatty Liver Disease: No Hx Gall Bladder Disease: No Hx Gastritis: No Hx Gastroesophageal Reflux: No Hx Hemorrhoids: No Hx Ileostomy: No Hx Irritable Bowel: No Hx Liver Failure: No Hx Nausea: No Hx Pancreatitis: No HX Swallowing Problems: No Hx Ulcer: No Hx Vomiting: No - GENITOURINARY/GYNECOLOGICAL Hx Genitourinary Disorders: No Hx Bladder Cancer: No Hx Bladder Stone: No Hx Cervical Cancer: No Hx Hematuria: No Hx Incontinence: No Hx Ovarian Cancer: No Hx Postmenopausal Bleeding: No Hx Reproductive Disorders: No Hx Sexually Transmitted Disorders: No Hx Uterine Cancer: No Hx Urinary Tract Infection: No - PSYCHIATRIC Hx Psychophysiologic Disorder: No Hx Anxiety: No Hx Bipolar Disorder: No Hx Depression: No Hx Emotional Abuse: No Hx Hallucinations: No Hx Panic Symptoms: No Hx Paranoia: No Hx Post Traumatic Stress Disorder: No Hx Psychosis: No Hx Physical Abuse: No Hx Schizophrenia: No Hx Sexual Abuse: No Hx Substance Use: No - SURGICAL HISTORY Hx Surgeries: No Hx Abdominal Aortic Aneurysm Repair: No Hx Amputation: No Hx Angiogram: No Hx Angioplasty: No Hx Appendectomy: No Hx Arteriovenous Shunt: No Hx Arthroscopy: No Hx Bile Duct Stent: No Hx Breast Biopsy: No Hx Cataract Extraction: No Hx Cardiac Catheterization: No Hx Carotid Endarterectomy: No Hx Section: No Hx Cholecystectomy: No Hx Coronary Artery Bypass Graft: No Hx Coronary Stent: No Hx Dilation and Curettage: No Hx Eye Surgery: No Hx Femoral-Popliteal Bypass Graft: No Hx Gastric Bypass Surgery: No Hx Herniorrhaphy: No Hx Hysterectomy: No Hx Joint Replacement: No Hx Kidney Transplant: No Hx Liver Transplant: No Hx Mastectomy: No Hx Musculoskeletal Surgery: No Hx Open Heart Surgery: No Hx Open Reduction Internal Fixation: No Hx Orthopedic Surgery: No Hx Parathyroidectomy: No Hx Penile Implant: No Hx Pulmonary Surgery: No Hx Splenectomy: No Hx Thyroidectomy: No Hx Tonsillectomy: No Hx Tubal Ligation: No Hx Valve Replacement: No Hx Vascular Surgery: No Hx Vascular Access Device: No - ANESTHESIA Hx Anesthesia: Yes Hx Anesthesia Reactions: No Hx Malignant Hyperthermia: No Has any member of the family had a problem w/ anesthesia?: No Meds Allergies/Adverse Reactions: Allergies Allergy/AdvReac Type Severity Reaction Status Date / Time Penicillins Allergy ANAPHYLAXIS Verified 10/20/16 15:36 - Medications Medications: Current Medications Aspirin (Ecotrin) 81 mg PO DAILY [facility] Last Admin: 10/21/16 09:02 Dose: 81 mg Enoxaparin Sodium (Lovenox) 60 mg SC DAILY [facility] Last Admin: 10/21/16 09:02 Dose: 60 mg Aztreonam 1 gm/ Sodium (Chloride) 100 mls @ 100 mls/hr IVPB Q8H [facility] Last Admin: 10/21/16 22:45 Dose: 100 mls/hr Levothyroxine Sodium (Synthroid) 25 mcg PO ACB [facility] Pneumococcal Polyvalent Vaccine (Pneumovax 23 Vaccine) 0.5 ml IM .ONCE ONE Stop: 10/23/16 14:01 Physical Exam - Constitutional Appears: Well - Head Exam Head Exam: ATRAUMATIC, NORMAL INSPECTION, NORMOCEPHALIC - Eye Exam Eye Exam: EOMI, Normal appearance, PERRL Pupil Exam: NORMAL ACCOMODATION, PERRL - ENT Exam ENT Exam: Mucous Membranes Moist, Normal Exam - Neck Exam Neck exam: Positive for: Normal Inspection - Respiratory Exam Respiratory Exam: Clear to Auscultation Bilateral, Wheezes, NORMAL BREATHING PATTERN - Cardiovascular Exam Cardiovascular Exam: REGULAR RHYTHM, RRR, +S1, +S2, Systolic Murmur - GI/Abdominal Exam GI & Abdominal Exam: Normal Bowel Sounds, Soft. absent: Tenderness - Rectal Exam Rectal Exam: Deferred - Extremities Exam Extremities exam: Positive for: normal inspection - Back Exam Back exam: NORMAL INSPECTION - Neurological Exam Neurological exam: Alert, CN II-XII Intact, Normal Gait, Oriented x3, Reflexes Normal - Psychiatric Exam Psychiatric exam: Normal Affect, Normal Mood - Skin Skin Exam: Dry, Intact, Normal Color, Warm Results - Vital Signs Recent Vital Signs: Last Vital Signs Temp 98.5 F 10/21/16 23:40 Pulse 83 10/22/16 01:16 Resp 20 10/21/16 23:40 BP 145/76 10/21/16 23:40 Pulse Ox 95 10/21/16 23:40 - Labs Result Diagrams: 10/23/16 07:08 10/23/16 07:08 Labs: Laboratory Results - last 24 hr 10/21/16 10/21/16 10/21/16 06:10 06:10 06:10 WBC RBC Hgb Hct MCV MCH MCHC RDW Plt Count MPV Sodium Potassium Chloride Carbon Dioxide Anion Gap BUN Creatinine Est GFR ( Amer) Est GFR (Non-Af Amer) Random Glucose Hemoglobin A1c 5.2 Calcium Iron 62 TIBC 286 % Saturation 22 Triglycerides 68 Cholesterol 129 LDL Cholesterol Direct 71 HDL Cholesterol 45 Vitamin B12 235 L Folate 8.6 TSH 3rd Generation 10/21/16 10/21/16 06:10 06:10 WBC 8.6 RBC 4.71 Hgb 13.2 Hct 40.1 MCV 85.1 MCH 28.1 MCHC 33.0 RDW 14.6 H Plt Count 224 MPV 8.3 Sodium 142 Potassium 3.4 L Chloride 106 Carbon Dioxide 26 Anion Gap 13 BUN 16 Creatinine 0.9 Est GFR ( Amer) > 60 Est GFR (Non-Af Amer) > 60 Random Glucose 87 Hemoglobin A1c Calcium 9.1 Iron TIBC % Saturation Triglycerides Cholesterol LDL Cholesterol Direct HDL Cholesterol Vitamin B12 Folate TSH 3rd Generation 8.29 H Assessment & Plan (1) Syncope and collapse Assessment and Plan: etiology ? vasovagal vs. arrhythmic monitor on telemetry check echo orthostatics Status: Acute (2) HALL (dyspnea on exertion) Assessment and Plan: ? anginal equivalent will need ischemic evaluation Status: Acute (3) History of pulmonary embolism Assessment and Plan: CT Status: Acute (4) Kidney stones Status: Acute
[2016-10-22] MEDS: Aztreonam 1 GM in Sodium Chloride 0.9% 100 ML IVPB SCH (05:21)
[2016-10-22] MEDS: Levothyroxine 25 MCG TAB PO SCH (06:20)
[2016-10-22] MEDS ORDERED: Levothyroxine 25 MCG TAB PO SCH (07:30)
--- NOTE | 2016-10-22 09:10 | VASCLAB ---
PROCEDURE: HISTORY: syncope COMPARISON: None available. TECHNIQUE: Grayscale and duplex Doppler evaluation of the cervical carotid and vertebral arteries were performed. The common carotid, carotid bifurcations and cervical Internal Carotid Artery (ICA) and proximal External Carotid Artery (ECA) were evaluated. The vertebral arteries were evaluated for gross patency and flow direction. Report prepared by Abraham Campbell, BS, RVT FINDINGS: RIGHT CAROTID ARTERIES: 1. Common Carotid Artery: No significant focal plaque formation of the right common carotid artery. Maximum Peak Systolic velocity: 82 cm/sec: End-diastolic velocity 11 cm/sec. 2. Carotid Bifurcation: Heterogeneous plaque formation. Maximum Peak Systolic velocity: 57 cm/sec: End-diastolic velocity 13 cm/sec. 3. Internal Carotid Artery: Minimal plaque formation of the right proximal ICA which does not result in hemodynamically significant stenosis. Plaque description: Heterogeneous 3.1. Proximal Segment: Peak systolic velocity 66 cm/sec: End-diastolic velocity 15 cm/sec - % stenosis 0-15% 3.2. Middle Segment: Peak systolic velocity 42 cm/sec: End-diastolic velocity 11 cm/sec - % stenosis 0-15% 3.3. Distal Segment: Peak systolic velocity 48 cm/sec: End-diastolic velocity 12 cm/sec - % stenosis 0-15% 4. External Carotid Artery: No significant focal plaque formation. Peak systolic velocity 94 cm/sec 5. ICA/CCA Ratio: 0.8 LEFT CAROTID ARTERIES: 1. Common Carotid Artery: No significant focal plaque formation of the left common carotid artery. Maximum Peak Systolic velocity: 77 cm/sec: End-diastolic velocity 18 cm/sec. 2. Carotid Bifurcation: plaque formation. Maximum Peak Systolic velocity: 66 cm/sec: End-diastolic velocity 19 cm/sec. 3. Internal Carotid Artery: Plaque description: 3.1. Proximal Segment: Peak systolic velocity 68 cm/sec: End-diastolic velocity 19 cm/sec - % stenosis 0-15% 3.2. Middle Segment: Peak systolic velocity 95 cm/sec: End-diastolic velocity 28 cm/sec - % stenosis 0-15% 3.3. Distal Segment: Peak systolic velocity 60 cm/sec: End-diastolic velocity 16 cm/sec - % stenosis 0-15% 4. External Carotid Artery: No significant focal plaque formation. Peak systolic velocity 88 cm/sec 5. ICA/CCA Ratio: 1.2 VERTEBRAL ARTERIES: 1. Right Vertebral Artery: The right vertebral artery flow direction is antegrade. 2. Left Vertebral Artery: The left vertebral artery flow direction is antegrade. OTHER FINDINGS: 1. Right Brachial Blood pressure: 176 mmHg. 2. Left Brachial Blood pressure: 170 mmHg. IMPRESSION: RIGHT: Duplex scan does not suggest hemodynamically significant stenosis of the right extracranial carotid arteries. LEFT: Duplex scan does not suggest hemodynamically significant stenosis of the left extracranial carotid arteries.
--- NOTE | 2016-10-22 09:47 | MRI ---
PROCEDURE: MRI BRAIN WITHOUT CONTRAST HISTORY: syncope COMPARISON: None. TECHNIQUE: Multiplanar, multisequence MR images of the brain were obtained without intravenous contrast enhancement. FINDINGS: HEMORRHAGE: None DWI: No evidence of an acute or early subacute infarction. BRAIN PARENCHYMA: There is expansion of the ventricular sulcal and cisternal spaces compatible diffuse cerebral atrophy further, chronic microangiopathy is seen diffusely in the cerebrum manifest by periventricular and centrum semiovale as well as subcortical white matter signal changes. Minimal chronic microangiopathy is suggested at the ink as well. There is no mass-effect and the midline brain anatomy is remarkable only for mildly prominent cisterna magna. VENTRICLES: Unremarkable. No hydrocephalus. CRANIUM: Unremarkable. ORBITS: Grossly unremarkable. PARANASAL SINUSES/MASTOIDS: A small polyp or cyst in the anterior portion of the right maxillary sinus. Yes VASCULAR SYSTEM: Skull base flow voids intact. OTHER FINDINGS: None. IMPRESSION: No acute intracranial findings including brain infarction. Mild age related neuro degenerative changes are identified.
[2016-10-22] MEDS: Enoxaparin 60 mg Syringe SC SCH (09:54)
--- NOTE | 2016-10-22 11:08 | US ---
Limited abdomen/renal ultrasound Indication: uti/kidney stones Comparison: None available Findings: The liver appears within normal limits in echotexture and size measuring 16.8 cm. The main portal vein appears patent with normal directional flow. There is no evidence of intrahepatic ductal dilatation. The common bile duct appears within normal limits of caliber, measuring 3 mm. Gallstones. There is no evidence of gallbladder-wall thickening or pericholecystic fluid. The patient was not focally tender over the gallbladder. The pancreas was not visualized. The right kidney measures 10.2 x 4.1 x 4.2 cm and is without evidence of stones or hydronephrosis. 2.8 x 2.3 x 2.9 cm right upper pole renal cyst. The left kidney measures 11.7 x 4.6 x 4.6 cm and is without evidence of hydronephrosis. Ill-defined echogenic region within the left kidney with evidence of shadowing, possibly staghorn calculus. Left renal cysts including a lower pole cysts measuring approximately 1.3 x 1.6 x 1.2 cm, 1.1 x 1.1 x 1.2 cm, and 1.5 x 1.3 x 1.4 cm. The spleen measures approximately 9.4 cm. The visualized abdominal aorta appears within normal limits caliber. The visualized IVC appear grossly unremarkable. Impression: Cholelithiasis. Bilateral renal cysts. Suspect left renal staghorn calculus. CT may be considered if indicated.
--- NOTE | 2016-10-22 13:06 | CP.PCM.PN ---
Subjective - Date & Time of Evaluation Date of Evaluation: 10/22/16 Time of Evaluation: 13:06 - Subjective Subjective: CHIEF COMPLAINTS TODAY : AFEBRILE, Feeling better Left flank pain. Denies dysuria. ROS. HEENT : N. Resp : No cough, wheezing ,pleuritic CP ,or hemoptysis Cardio : No anginal CP, PND, orthopnea, palpitation GI : +ve LT. FLANK PAIN, NO n/v ,diarrhea or GI bleeding . HEAD OF MARKETING ADOMETRY : No headache, vertigo, focal deficit. Musculoskel : No joint swelling , Derm : No rash Psych : Normal affect. Ext : No swelling ,calf pain PE. Pt. is alert awake in no distress. V.S As noted in the chart Head ,ear nose,throat and eyes : Normal. Neck : Supple with normal carotids. Lungs: Clear air entry. Heart : S1 & S2 normal with S4. No murmur. Abd : LT CVA TENDERNESS/AND FLANK PAIN with normal bowel sounds. Neuro : Moves all ext. with no localized deficit. Ext : No edema with intact pulses.Non tender calves Derm : No rashes or decubitus ulcer. LABS/RADIOLOGY: URINE CULTURE +VE Klebsiella pneumoniae ESBL +VE S -BACTRIM R-AZACTAM aBDOMINAL ULTRASOUND left staghorn calculi,, no hydronephrosis. bRAIN MRI -VE. ASSESSMENT : COMPLICATED UTI. lEFT STAGHORN CALCULI. SYNCOPE. PLAN; DC iv AZACTAM START iv bACTRIM 240 MG iv PIGGYBACK EVERY 12 HOURLY 10/22 ( PATIENT ALLERGIC TO PENICILLIN-ANAPHYLAXIS ) EVALUATION SYNCOPE WORKUP IN PROGRESS. Objective - Vital Signs/Intake and Output Vital Signs (last 24 hours): Temp Pulse Resp BP Pulse Ox 98.2 F 74 20 136/75 95 10/22/16 08:51 10/22/16 08:51 10/22/16 08:51 10/22/16 08:51 10/22/16 08:51 Intake and Output: 10/22/16 10/22/16 06:59 18:59 Intake Total 200 Balance 200 - Medications Medications: Current Medications Aspirin (Ecotrin) 81 mg PO DAILY [facility] Last Admin: 10/22/16 09:55 Dose: 81 mg Enoxaparin Sodium (Lovenox) 60 mg SC DAILY [facility] Last Admin: 10/22/16 09:54 Dose: 60 mg Trimethoprim/Sulfamethoxazole (240 mg/ Dextrose) 250 mls @ 250 mls/hr IVPB Q12 [facility] Levothyroxine Sodium (Synthroid) 25 mcg PO DAILY@0630 [facility] Last Admin: 10/22/16 06:20 Dose: 25 mcg Pneumococcal Polyvalent Vaccine (Pneumovax 23 Vaccine) 0.5 ml IM .ONCE ONE Stop: 10/23/16 14:01 - Labs Labs: 10/21/16 06:10 10/21/16 06:10 PT 11.2 SECONDS (9.7-12.2) 10/20/16 16:27 INR 1.0 10/20/16 16:27 APTT 32 SECONDS (21-34) 10/20/16 16:27 Assessment and Plan (1) Syncope and collapse Status: Acute (2) Pyelonephritis Status: Acute (3) UTI (urinary tract infection), bacterial Status: Acute (4) Kidney stones Status: Acute (5) History of pulmonary embolism Status: Acute
[2016-10-22] MEDS: Sulfamethoxazole/Trimethoprim 240 MG in Dextrose 5% In Water 250 ML IVPB SCH ×2 (14:00→22:35)
--- NOTE | 2016-10-22 14:23 | PN ---
SUBJECTIVE: The patient is sitting on the bed, in no acute distress. Denies having any headache or dizziness. PHYSICAL EXAMINATION VITAL SIGNS: Blood pressure is 136/75, heart rate is 74 per minute, breathing at a rate 16 per minute, and temperature is 98.2 degrees Fahrenheit. HEENT: Head is normocephalic and atraumatic. NECK: Supple. There are no carotid bruits. LUNGS: Clear. CARDIOVASCULAR: S1 and S2 audible. No murmurs. ABDOMEN: Soft and nontender with bowel sounds present. NEUROLOGIC: Mental Status: The patient is awake, alert and oriented to time, place and person. Speech is fluent. Naming and repetition are normal. Memory examination are intact. CRANIAL NERVE EXAMINATION: Pupils are 4 mm bilaterally, reactive to light. Visual chahal are full. Extraocular movements are intact. There is no facial asymmetry. She is moving all four extremities. Power appears to be 5/5. Plantars downgoing bilaterally. Cerebellar examination: [id number] shows no dysmetria. LABORATORY DATA: Labs reviewed. MRI of the brain no acute intracranial findings including brain infarction, mild age-related neurodegenerative changes. The patient had a carotid Doppler study which shows no significant stenosis. She had an electroencephalogram which is normal. IMPRESSION: Status post syncope. RECOMMENDATION: 1. The patient had no further episode of passing out. 2. All pulmonary and neurologic workup is negative. 3. The patient did not have any cardiac arrhythmia. 4. The patient has prolonged ambulatory electroencephalogram which can be done as outpatient. 5. The patient is neurologically stable for discharge with outpatient followup. Thank you for the opportunity to participate in the care of this patient. Abdulaziz Mcdonnell MD
--- NOTE | 2016-10-23 02:29 | CARD ---
APPROVED REPORT EXAM: Two-dimensional and M-mode echocardiogram with Doppler and color Doppler. Other Information Quality : GoodRhythm : NSR INDICATION Pulmonary Embolism Syncope COPD UTI M-Mode DIMENSIONS RVDd1.87 (2.1-3.2cm)Left Atrium (MM)2.89 (2.5-4.0cm) IVSd1.13 (0.7-1.1cm)Aortic Root3.01 (2.2-3.7cm) LVDd4.25 (4.0-5.6cm)Aortic Cusp Exc.1.67 (1.5-2.0cm) PWd0.97 (0.7-1.1cm)FS (%) 37 % LVDs2.69 (2.0-3.8cm)LVEF (%)67 (>50%) Mitral Valve MV E Ecnbahpz83.5cm/sMV A Eogoocqy368.9cm/sE/A ratio0.5 TDI E/Lateral E'0.0E/Medial E'0.0 LEFT VENTRICLE The left ventricle is normal size. There is normal left ventricular wall thickness. Left ventricle systolic function is normal. The Ejection Fraction is 65-70%. There is normal LV segmental wall motion. Tissue Doppler imaging reveals abnormal left ventricular diastolic dysfunction. No left ventricle thrombus noted on this study. RIGHT VENTRICLE The right ventricle is normal size. There is normal right ventricular wall thickness. The right ventricular systolic function is normal. ATRIA The left atrium size is normal. The right atrium size is normal. The interatrial septum is intact with no evidence for an atrial septal defect. AORTIC VALVE The aortic valve is normal in structure. No aortic regurgitation is present. There is no aortic valvular stenosis. There is no aortic valvular vegetation. MITRAL VALVE The mitral valve is normal in structure. There is no evidence of mitral valve prolapse. There is no mitral valve stenosis. There is no mitral valve regurgitation noted. TRICUSPID VALVE The tricuspid valve is normal in structure. There is no tricuspid valve regurgitation noted. There is no tricuspid valve prolapse or vegetation. There is no tricuspid valve stenosis. PULMONIC VALVE The pulmonic valve is not well visualized. There is no pulmonic valvular regurgitation. GREAT VESSELS The aortic root is normal in size. PERICARDIAL EFFUSION There is no significant pericardial effusion. <Conclusion> Left ventricle systolic function is normal. The Ejection Fraction is 65-70%. Diastolic dysfunction. No aortic regurgitation is present. There is no mitral valve regurgitation noted. There is no tricuspid valve regurgitation noted. There is no pulmonic valvular regurgitation.
[2016-10-23] MEDS: Levothyroxine 25 MCG TAB PO SCH (05:30)
--- NOTE | 2016-10-23 06:31 | CP.PCM.PN ---
Subjective - Date & Time of Evaluation Date of Evaluation: 10/22/16 Time of Evaluation: 06:30 - Subjective Subjective: feeling fine no complaints rhythm stable on telemetry echo shows normal EF with mild diastolic dysfunction Objective - Vital Signs/Intake and Output Vital Signs (last 24 hours): Temp Pulse Resp BP Pulse Ox 98.0 F 73 20 113/66 96 10/23/16 00:00 10/23/16 00:00 10/23/16 00:00 10/23/16 00:00 10/23/16 00:00 - Medications Medications: Current Medications Aspirin (Ecotrin) 81 mg PO DAILY [facility] Last Admin: 10/22/16 09:55 Dose: 81 mg Enoxaparin Sodium (Lovenox) 60 mg SC DAILY [facility] Last Admin: 10/22/16 09:54 Dose: 60 mg Trimethoprim/Sulfamethoxazole (240 mg/ Dextrose) 250 mls @ 250 mls/hr IVPB Q12 [facility] Last Admin: 10/22/16 22:35 Dose: 250 mls/hr Levothyroxine Sodium (Synthroid) 25 mcg PO DAILY@0630 [facility] Last Admin: 10/23/16 05:30 Dose: 25 mcg Pneumococcal Polyvalent Vaccine (Pneumovax 23 Vaccine) 0.5 ml IM .ONCE ONE Stop: 10/23/16 14:01 - Labs Labs: 10/21/16 06:10 10/21/16 06:10 PT 11.2 SECONDS (9.7-12.2) 10/20/16 16:27 INR 1.0 10/20/16 16:27 APTT 32 SECONDS (21-34) 10/20/16 16:27 - Constitutional Appears: Well - Head Exam Head Exam: ATRAUMATIC, NORMAL INSPECTION, NORMOCEPHALIC - Eye Exam Eye Exam: EOMI, Normal appearance, PERRL Pupil Exam: NORMAL ACCOMODATION, PERRL - ENT Exam ENT Exam: Mucous Membranes Moist, Normal Exam - Neck Exam Neck Exam: Full ROM, Normal Inspection. absent: Lymphadenopathy - Respiratory Exam Respiratory Exam: Clear to Ausculation Bilateral, NORMAL BREATHING PATTERN - Cardiovascular Exam Cardiovascular Exam: Diastolic murmur, REGULAR RHYTHM, +S1, +S2, Murmur - GI/Abdominal Exam GI & Abdominal Exam: Soft, Normal Bowel Sounds. absent: Tenderness - Rectal Exam Rectal Exam: NORMAL INSPECTION - Extremities Exam Extremities Exam: Full ROM, Normal Capillary Refill, Normal Inspection. absent : Joint Swelling, Pedal Edema - Back Exam Back Exam: NORMAL INSPECTION - Neurological Exam Neurological Exam: Alert, Awake, CN II-XII Intact, Normal Gait, Oriented x3 - Psychiatric Exam Psychiatric exam: Normal Affect, Normal Mood - Skin Skin Exam: Dry, Intact, Normal Color, Warm Assessment and Plan (1) HALL (dyspnea on exertion) Assessment & Plan: plan for ischemic evaluation with stress test in am echo nl Status: Acute (2) History of pulmonary embolism Status: Acute (3) Kidney stones Status: Acute (4) Syncope and collapse Assessment & Plan: w/u in progress Status: Acute (5) UTI (urinary tract infection), bacterial Status: Acute
--- NOTE | 2016-10-23 06:36 | CP.PCM.PN ---
Subjective - Date & Time of Evaluation Date of Evaluation: 10/23/16 Time of Evaluation: 06:36 - Subjective Subjective: plan for stress test today Carotid and echo nl MRI brain nl Objective - Vital Signs/Intake and Output Vital Signs (last 24 hours): Temp Pulse Resp BP Pulse Ox 98.0 F 73 20 113/66 96 10/23/16 00:00 10/23/16 00:00 10/23/16 00:00 10/23/16 00:00 10/23/16 00:00 Intake and Output: 10/22/16 10/23/16 18:59 06:59 Intake Total 100 Balance 100 - Medications Medications: Current Medications Aspirin (Ecotrin) 81 mg PO DAILY [facility] Last Admin: 10/22/16 09:55 Dose: 81 mg Enoxaparin Sodium (Lovenox) 60 mg SC DAILY [facility] Last Admin: 10/22/16 09:54 Dose: 60 mg Trimethoprim/Sulfamethoxazole (240 mg/ Dextrose) 250 mls @ 250 mls/hr IVPB Q12 [facility] Last Admin: 10/22/16 22:35 Dose: 250 mls/hr Levothyroxine Sodium (Synthroid) 25 mcg PO DAILY@0630 [facility] Last Admin: 10/23/16 05:30 Dose: 25 mcg Pneumococcal Polyvalent Vaccine (Pneumovax 23 Vaccine) 0.5 ml IM .ONCE ONE Stop: 10/23/16 14:01 - Labs Labs: 10/21/16 06:10 10/21/16 06:10 PT 11.2 SECONDS (9.7-12.2) 10/20/16 16:27 INR 1.0 10/20/16 16:27 APTT 32 SECONDS (21-34) 10/20/16 16:27 - Constitutional Appears: Well - Head Exam Head Exam: ATRAUMATIC, NORMAL INSPECTION, NORMOCEPHALIC - Eye Exam Eye Exam: EOMI, Normal appearance, PERRL Pupil Exam: NORMAL ACCOMODATION, PERRL - ENT Exam ENT Exam: Mucous Membranes Moist, Normal Exam - Neck Exam Neck Exam: Full ROM, Normal Inspection. absent: Lymphadenopathy - Respiratory Exam Respiratory Exam: Clear to Ausculation Bilateral, NORMAL BREATHING PATTERN - Cardiovascular Exam Cardiovascular Exam: REGULAR RHYTHM, RRR, +S1, +S2, Murmur - GI/Abdominal Exam GI & Abdominal Exam: Soft, Normal Bowel Sounds. absent: Tenderness - Rectal Exam Rectal Exam: NORMAL INSPECTION - Extremities Exam Extremities Exam: Full ROM, Normal Capillary Refill, Normal Inspection. absent : Joint Swelling, Pedal Edema - Back Exam Back Exam: NORMAL INSPECTION - Neurological Exam Neurological Exam: Alert, Awake, CN II-XII Intact, Normal Gait, Oriented x3 - Psychiatric Exam Psychiatric exam: Normal Affect, Normal Mood - Skin Skin Exam: Dry, Intact, Normal Color, Warm Assessment and Plan (1) HALL (dyspnea on exertion) Assessment & Plan: stress test today further management based on results of stress testing Status: Acute (2) History of pulmonary embolism Status: Acute (3) Kidney stones Status: Acute (4) Pyelonephritis Status: Acute (5) Syncope and collapse Status: Acute (6) UTI (urinary tract infection), bacterial Status: Acute
[2016-10-23 07:24] LABS: BASO # 0.1 K/uL (0.0-0.2); BASO % 0.8 % (0.0-2.0); EOS # 0.3 K/uL (0.0-0.7); EOS % 4.1 % (0.0-4.0); HEMATOCRIT 37.6 % (34.0-47.0); LYMPH # 1.7 K/uL (1.0-4.3); LYMPH % 23.8 % (20.0-40.0); MEAN CELL VOLUME 85.5 fL (81.0-99.0); MEAN CORPUSCULAR HEMOGLOBIN 28.8 pg (27.0-31.0); MEAN CORPUSCULAR HGB CONC 33.7 g/dL (33.0-37.0); MEAN PLATELET VOLUME 8.7 fL (7.2-11.7); MONO # 0.6 K/uL (0.0-0.8); MONO % 8.2 % (0.0-10.0); NRBC % 0.1 % (0.0-2.0); RED CELL DISTRIBUTION WIDTH 15.2 % (11.5-14.5); WHITE BLOOD COUNT 7.3 K/uL (4.8-10.8)
[2016-10-23] MEDS ORDERED: Aminophylline 25 mg/ml Inj ONE (07:34)
[2016-10-23 07:46] LABS: CALCIUM 8.6 mg/dl (8.6-10.4)
--- NOTE | 2016-10-23 08:29 | EEG ---
ELECTROENCEPHALOGRAM REPORT INTRODUCTION: This is a digitally recorded electroencephalogram monitoring using standard electroencephalogram montages. Background rhythm on the EEG shows a background activity of 9 Hz alpha activity in the parietal and occipital region. The EEG activity is bilaterally symmetrical and synchronous. There is attenuation of the background activity on eye opening. Small amount of movement artifact noticed in this EEG recording. Abnormal potential. No spikes, sharp waves, or focal slowing was seen. Photic stimulation and hyperventilation; photic stimulation did not reveal any abnormality. Hyperventilation was not performed. IMPRESSION: Normal electroencephalogram. No epileptiform activity seen in this electroencephalogram recording. Abdulaziz Mcdonnell MD
[2016-10-23] MEDS: Sulfamethoxazole/Trimethoprim 240 MG in Dextrose 5% In Water 250 ML IVPB SCH ×2 (11:00→22:33)
--- NOTE | 2016-10-23 13:16 | CP.PCM.PN ---
Subjective - Date & Time of Evaluation Date of Evaluation: 10/23/16 Time of Evaluation: 13:16 - Subjective Subjective: CHIEF COMPLAINTS TODAY : AFEBRILE, C/O fEELING TIRED. Left flank pain IMPROVING Denies dysuria. ROS. HEENT : N. Resp : No cough, wheezing ,pleuritic CP ,or hemoptysis Cardio : No anginal CP, PND, orthopnea, palpitation GI : +ve LT. FLANK PAIN, NO n/v ,diarrhea or GI bleeding . INDUSTRIAL TRAINER : No headache, vertigo, focal deficit. Musculoskel : No joint swelling , Derm : No rash Psych : Normal affect. Ext : No swelling ,calf pain PE. Pt. is alert awake in no distress. V.S As noted in the chart Head ,ear nose,throat and eyes : Normal. Neck : Supple with normal carotids. Lungs: Clear air entry. Heart : S1 & S2 normal with S4. No murmur. Abd : LT CVA TENDERNESS/AND FLANK PAIN with normal bowel sounds. Neuro : Moves all ext. with no localized deficit. Ext : No edema with intact pulses.Non tender calves Derm : No rashes or decubitus ulcer. LABS/RADIOLOGY: URINE CULTURE +VE Klebsiella pneumoniae ESBL +VE S -BACTRIM R-AZACTAM aBDOMINAL ULTRASOUND left staghorn calculi,, no hydronephrosis. bRAIN MRI -VE. ASSESSMENT : COMPLICATED UTI. lEFT STAGHORN CALCULI. SYNCOPE. PLAN; DC iv AZACTAM ON iv bACTRIM 240 MG iv PIGGYBACK EVERY 12 HOURLY 10/22 ( PATIENT ALLERGIC TO PENICILLIN-ANAPHYLAXIS ) EVALUATION SYNCOPE WORKUP IN PROGRESS. F/U REPEAT URINE CULTURES. Objective - Vital Signs/Intake and Output Vital Signs (last 24 hours): Temp Pulse Resp BP Pulse Ox 98.0 F 81 20 113/66 96 10/23/16 00:00 10/23/16 07:30 10/23/16 00:00 10/23/16 00:00 10/23/16 00:00 Intake and Output: 10/23/16 10/23/16 06:59 18:59 Intake Total 100 Balance 100 - Medications Medications: Current Medications Aspirin (Ecotrin) 81 mg PO DAILY [facility] Last Admin: 10/22/16 09:55 Dose: 81 mg Enoxaparin Sodium (Lovenox) 60 mg SC DAILY [facility] Last Admin: 10/22/16 09:54 Dose: 60 mg Trimethoprim/Sulfamethoxazole (240 mg/ Dextrose) 250 mls @ 250 mls/hr IVPB Q12 [facility] Last Admin: 10/22/16 22:35 Dose: 250 mls/hr Levothyroxine Sodium (Synthroid) 25 mcg PO DAILY@0630 [facility] Last Admin: 10/23/16 05:30 Dose: 25 mcg Pneumococcal Polyvalent Vaccine (Pneumovax 23 Vaccine) 0.5 ml IM .ONCE ONE Stop: 10/23/16 14:01 - Labs Labs: 10/23/16 07:08 10/23/16 07:08 PT 11.2 SECONDS (9.7-12.2) 10/20/16 16:27 INR 1.0 10/20/16 16:27 APTT 32 SECONDS (21-34) 10/20/16 16:27 Assessment and Plan (1) Syncope and collapse Status: Acute (2) Pyelonephritis Status: Acute (3) UTI (urinary tract infection), bacterial Status: Acute (4) Kidney stones Status: Acute (5) History of pulmonary embolism Status: Acute
[2016-10-23] MEDS: Enoxaparin 60 mg Syringe SC SCH (13:37)
[2016-10-23] MEDS ORDERED: Pneumococcal 23-Valent Vaccine IM ONE (14:00)
--- NOTE | 2016-10-23 17:50 | CARD ---
APPROVED REPORT Protocol: PHARMACOLOGICAL L STRESS Test Type: LEXISCAN Test Indications: CHEST PAIN Medications: LIST SCAN Medical History: CHEST PAIN Target HR: 143 bpm Resting ECG: normal Resting Heart Rate: 86 bpm Resting Blood Pressure: 126/80mmHg submaximum (85%): 122 bpm TEST SUMMARY [id number]/80.0. INFUSIONDOSE 100:[id number]/.0. OAXZURBLY17:250.00.01.0109/.0. PROCEDURE Pharmacologic stress testing was performed using 0.4mg per 5ml of regadenoson given intravenously over 7-10 seconds. POST EXERCISE Reason for Termination: Protocol Completed Target HR: No Max HR: 75 bpm 76% of Maximum Predicted HR: 143 bpm Exercise duration: 00:30 min:sec, 0 Stage Exercise capacity: 1.0METs Max Blood Pressure: 126/80mmHg Blood Pressure response to exercise: normal resting BP - appropriate response Heart Rate response to exercise: appropriate Chest Pain: No, none Angina index: 0 Arrhythmia: No, none ST Change: No, none Deviation: 0 mm INTERPRETATION Stress EKG Conclusion: No evidence of ischemia after lexiscan infusion noted. EXAM: Myocardial Perfusion STRESS/REST Imaging Protocol The imaging protocol used to acquire images was Rest Tc-99m/stress Tc-99m 1 day Stress Spect myocardial perfusion imaging was performed in supine position 41 minutes following the injection of 12.9 mCi of Tc-99 Myoview. Gated Rest Spect was performed 40 minutes after intravenous 31.9 mCi Tc-99 Myoview injection. The images were gated to evaluate regional wall motion and calculate ventricular ejection fraction.Images were reconstructed using backfilter projection method in short horizontal and verticle long axis. Spect slices were generated. RESTING DATA EDV66.42imPR3.90L/min ESV18.00mlMyocardial Dzwv830.00g Av. Heart Rate80.00bpm EF73.00% STRESS DATA EDV55.61hwJQ2.30L/min ESV16.00mlMyocardial Mass97.00g EF71.00% Regional WT score at stress:0.00 Regional WM score at stress:0.00 Summed WT score at stress:0.00 Av. Heart Rate85.00bpmSummed WM score at stress:0.00 Study quality was good. Left Ventricular size was Normal at Rest and Stress. LV Perfusion 1 Perfusion Defect Location: apex Perfusion Defect Size: Small (1-2 segments) Perfusion Defect Severity: Mild Type of Perfusion Defect: Partially Reversible Mild reversible defect in the apex wall. LV Perf. Quant 17 Seg. SSS1.00 17 Seg. SRS0.00 17 Seg. SDS1.00 Stress Defect Extent (% LAD)0.00Rest Defect Extent (% LAD)0.00Rev. Defect Extent (% LAD)0.00 Stress Defect Extent (% LCX)0.00Rest Defect Extent (% LCX)0.00Rev. Defect Extent (% LCX)0.00 Stress Defect Extent (% RCA)0.00Rest Defect Extent (% RCA)0.00Rev. Defect Extent (% RCA)0.00 Stress Defect Extent (% ANTHONY)0.00Rest Defect Extent (% ANTHONY)0.00Rev. Defect Extent (% ANTHONY)0.00 Other Information Quality:Good Overall Exercise Capacity: Not assessed Left Ventricle LV Size/Shape: The left ventricle is normal size. LV Function:Left ventricle systolic function is normal. The Ejection Fraction is 65-70%. Regional Wall Motion:There is normal left ventricular wall motion. Metabolism/Perfusion Defects: Small sized mild intensity apical defect Conclusion 1. Left ventricle systolic function is normal. 2. The Ejection Fraction is 65-70%. 3. Small sized mild intensity apical defect
--- NOTE | 2016-10-24 02:06 | CP.PCM.PN ---
Subjective - Date & Time of Evaluation Date of Evaluation: 10/22/16 Time of Evaluation: 01:30 - Subjective Subjective: Ms. Lazaro is a 76-year-old female with past medical history significant for PE that was diagnosed back in November 23, 2014 renal stones and UTI who had a episode of syncope back in November 23, 2014 for which she was admitted to [facility]. She was treated with Coumadin therapy for 6-8 month and subsequently stopped taking Coumadin on her own. According to the patient she had a similar episode while she were walking down the stairs which she felt lightheaded dizzy and almost fell down and accompanied had a mild chest discomfort radiating to the neck area. She has 40- pack-year history of smoking and history of COPD quit smoking back in 2005. Maternal family has history of premature coronary artery disease. At baseline she has NYHA failure class II/III dyspnea. Objective - Vital Signs/Intake and Output Vital Signs (last 24 hours): Temp Pulse Resp BP Pulse Ox 98.5 F 88 20 138/66 95 10/23/16 23:40 10/23/16 23:40 10/23/16 23:40 10/23/16 23:40 10/23/16 23:40 - Medications Medications: Current Medications Aspirin (Ecotrin) 81 mg PO DAILY [facility] Last Admin: 10/23/16 13:37 Dose: 81 mg Enoxaparin Sodium (Lovenox) 60 mg SC DAILY [facility] Last Admin: 10/23/16 13:37 Dose: 60 mg Trimethoprim/Sulfamethoxazole (240 mg/ Dextrose) 250 mls @ 250 mls/hr IVPB Q12 [facility] Last Admin: 10/23/16 22:33 Dose: 250 mls/hr Levothyroxine Sodium (Synthroid) 25 mcg PO DAILY@0630 [facility] Last Admin: 10/23/16 05:30 Dose: 25 mcg - Labs Labs: 10/23/16 07:08 10/23/16 07:08 PT 11.2 SECONDS (9.7-12.2) 10/20/16 16:27 INR 1.0 10/20/16 16:27 APTT 32 SECONDS (21-34) 10/20/16 16:27 - Constitutional Appears: Well - Head Exam Head Exam: ATRAUMATIC, NORMAL INSPECTION, NORMOCEPHALIC - Eye Exam Eye Exam: EOMI, Normal appearance, PERRL Pupil Exam: NORMAL ACCOMODATION, PERRL - ENT Exam ENT Exam: Mucous Membranes Moist, Normal Exam - Neck Exam Neck Exam: Full ROM, Normal Inspection. absent: Lymphadenopathy - Respiratory Exam Respiratory Exam: Clear to Ausculation Bilateral, NORMAL BREATHING PATTERN - Cardiovascular Exam Cardiovascular Exam: REGULAR RHYTHM, +S1, +S2. absent: Murmur - GI/Abdominal Exam GI & Abdominal Exam: Soft, Normal Bowel Sounds. absent: Tenderness - Rectal Exam Rectal Exam: NORMAL INSPECTION - Exam Exam: Circumcision, NORMAL INSPECTION External exam: NORMAL EXTERNAL EXAM Speculum exam: NORMAL SPECULUM EXAM Bimanual exam: NORMAL BIMANUAL EXAM - Extremities Exam Extremities Exam: Full ROM, Normal Capillary Refill, Normal Inspection. absent : Joint Swelling, Pedal Edema - Back Exam Back Exam: CVA tenderness (R), NORMAL INSPECTION - Neurological Exam Neurological Exam: Alert, Awake, CN II-XII Intact, Normal Gait, Oriented x3 - Psychiatric Exam Psychiatric exam: Normal Affect, Normal Mood - Skin Skin Exam: Dry, Intact, Normal Color, Warm Assessment and Plan - Assessment and Plan (Free Text) Assessment: ASSESSMENT : COMPLICATED UTI. lEFT STAGHORN CALCULI. SYNCOPE. PLAN; DC iv AZACTAM START iv bACTRIM 240 MG iv PIGGYBACK EVERY 12 HOURLY 10/22 ( PATIENT ALLERGIC TO PENICILLIN-ANAPHYLAXIS ) EVALUATION SYNCOPE WORKUP IN PROGRESS.
--- NOTE | 2016-10-24 04:16 | PN ---
DATE: 10/23/2016 SUBJECTIVE: The patient is seen and examined at bedside, looking little bit comfortable. No nausea, vomiting, or diarrhea. Denies any hematuria or hematochezia. Denies swelling of the legs, no chest pain, no palpitation. PHYSICAL EXAMINATION GENERAL: Text. VITAL SIGNS: Temperature is 98.0, pulse 81, respiratory rate 20, blood pressure 130/66, pulse oximetry 96. HEENT: Head is normocephalic and atraumatic. Eyes, PERRLA. Extraocular muscles intact. Conjunctivae clear. Nose patent. Mucous membranes moist. NECK: Supple. No carotid bruits. No JVD. No thyromegaly. CHEST: Bilaterally symmetrical. HEART: S1 and S2 positive. LUNGS: Clear to auscultation. ABDOMEN: Soft. Bowel sounds present. No organomegaly. EXTREMITIES: No edema, no cyanosis. NEUROLOGIC: The patient is awake, alert. Moving all four extremities. No focal deficits. LABORATORY DATA: White blood cells 7.3, hemoglobin 12.7, hematocrit 37.6, platelets 212. Sodium 140, potassium 4.0, BUN 19, creatinine 1.1, glucose 112. MEDICATIONS: Ecotrin and Lovenox, Bactrim, Synthroid. ASSESSMENT AND PLAN: The patient is a 76-year-old lady with hyperglycemia, syncope, and collapse, getting better, pyelonephritis, and UTI, getting antibiotics as per infectious disease, kidney stones, history of pulmonary embolism. Seen by Dr. Garrison Florian, boil off worker. The patient went to myocardial perfusion scan study. Left ventricular systolic function is normal. Ejection fraction of 65% to 70%, mild intensity apical defect. The patient went for abdominal and pelvic ultrasound. According to Dr. Josie Munoz, the patient has cholelithiasis, bilateral renal cyst, suspected renal staghorn calculus. Radiologist is recommending a CAT scan. Looks like, the patient has a left kidney staghorn calculus. We will call urology consult. We will do CAT scan. GI and DVT prophylaxis. Repeat labs. We will followup. Rosa M Do MD
[2016-10-24] MEDS: Levothyroxine 25 MCG TAB PO SCH (06:05)
[2016-10-24] MEDS: Sulfamethoxazole/Trimethoprim 240 MG in Dextrose 5% In Water 250 ML IVPB SCH ×2 (10:00→21:19)
[2016-10-24] MEDS: Enoxaparin 60 mg Syringe SC SCH (10:14)
--- NOTE | 2016-10-24 12:29 | CT ---
PROCEDURE: CT Abdomen and Pelvis without intravenous contrast HISTORY: uti , stone COMPARISON: Comparison is made to the previous ultrasound dated 10/22/2016 TECHNIQUE: Axial and reformatted coronal and sagittal CT images of the abdomen and pelvis were obtained without IV or oral contrast administration.. Contrast Dose: 0 Radiation dose: Total exam DLP = 433.09 mGy-cm. This CT exam was performed using one or more of the following dose reduction techniques: Automated exposure control, adjustment of the mA and/or kV according to patient size, and/or use of iterative reconstruction technique. FINDINGS: LOWER THORAX: Unremarkable. LIVER: Unremarkable. No gross lesion or ductal dilatation. GALLBLADDER AND BILE DUCTS: Unremarkable. PANCREAS: Unremarkable. No gross lesion or ductal dilatation. SPLEEN: Unremarkable. ADRENALS: Unremarkable. No mass. KIDNEYS AND URETERS: There is a staghorn calculus at the upper pole of the left kidney. There is also another staghorn calculus at the lower pole of left kidney. There is mild left hydronephrosis. No evidence of significant left hydro ureter. The right kidney demonstrates no renal stone or hydronephrosis. There is low-attenuation lesion at the upper pole of the right kidney measures 2.6 centimeter. VASCULATURE: Unremarkable. No aortic aneurysm. BOWEL: Unremarkable. No obstruction. No gross mural thickening. APPENDIX: Unremarkable. Normal appendix. PERITONEUM: Unremarkable. No free fluid. No free air. LYMPH NODES: Unremarkable. No enlarged lymph nodes. BLADDER: Unremarkable. REPRODUCTIVE: Unremarkable. BONES: No acute fracture. OTHER FINDINGS: None. IMPRESSION: Two large staghorn calculi at the collecting system of the left kidney. Mild left hydronephrosis. No evidence of hydroureter. No evidence of right renal stone or hydronephrosis. Otherwise no evidence of acute pathology in the abdomen and pelvis.
--- NOTE | 2016-10-24 20:48 | CP.PCM.PN ---
Subjective - Date & Time of Evaluation Date of Evaluation: 10/24/16 Time of Evaluation: 20:48 - Subjective Subjective: CHIEF COMPLAINTS TODAY : AFEBRILE, C/O FEELING TIRED. CLINICALLY IMPROVED TSH ELEVATED SEEN BY DINING ROOM HELPER PER PATIENT ROS. HEENT : N. Resp : No cough, wheezing ,pleuritic CP ,or hemoptysis Cardio : No anginal CP, PND, orthopnea, palpitation GI : +ve LT. FLANK PAIN, NO n/v ,diarrhea or GI bleeding . BED SPRING MAKER : No headache, vertigo, focal deficit. Musculoskel : No joint swelling , Derm : No rash Psych : Normal affect. Ext : No swelling ,calf pain PE. Pt. is alert awake in no distress. V.S As noted in the chart Head ,ear nose,throat and eyes : Normal. Neck : Supple with normal carotids. Lungs: Clear air entry. Heart : S1 & S2 normal with S4. No murmur. Abd : LT CVA TENDERNESS/AND FLANK PAIN with normal bowel sounds. Neuro : Moves all ext. with no localized deficit. Ext : No edema with intact pulses.Non tender calves Derm : No rashes or decubitus ulcer. LABS/RADIOLOGY: URINE CULTURE +VE Klebsiella pneumoniae ESBL +VE S -BACTRIM R-AZACTAM ABDOMINAL ULTRASOUND left staghorn calculi,, no hydronephrosis. bRAIN MRI -VE. ASSESSMENT : COMPLICATED UTI. lEFT STAGHORN CALCULI. SYNCOPE. HX PE PLAN; PATIENT STARTED ON sYNTHROID PER PMD. ON iv bACTRIM 240 MG iv PIGGYBACK EVERY 12 HOURLY 10/22 ( PATIENT ALLERGIC TO PENICILLIN-ANAPHYLAXIS ) EVALUATION PER PMD SYNCOPE WORKUP IN PROGRESS. F/U REPEAT URINE CULTURES. Objective - Vital Signs/Intake and Output Vital Signs (last 24 hours): Temp Pulse Resp BP Pulse Ox 98.0 F 78 20 134/76 96 10/24/16 17:55 10/24/16 17:55 10/24/16 17:55 10/24/16 17:55 10/24/16 17:55 - Medications Medications: Current Medications Aspirin (Ecotrin) 81 mg PO DAILY [facility] Last Admin: 10/24/16 10:14 Dose: 81 mg Enoxaparin Sodium (Lovenox) 60 mg SC DAILY [facility] Last Admin: 10/24/16 10:14 Dose: 60 mg Trimethoprim/Sulfamethoxazole (240 mg/ Dextrose) 250 mls @ 250 mls/hr IVPB Q12 [facility] Last Admin: 10/24/16 10:00 Dose: 250 mls/hr Levothyroxine Sodium (Synthroid) 25 mcg PO DAILY@0630 [facility] Last Admin: 10/24/16 06:05 Dose: 25 mcg - Labs Labs: 10/23/16 07:08 10/23/16 07:08 PT 11.2 SECONDS (9.7-12.2) 10/20/16 16:27 INR 1.0 10/20/16 16:27 APTT 32 SECONDS (21-34) 10/20/16 16:27 Assessment and Plan (1) Syncope and collapse Status: Acute (2) Pyelonephritis Status: Acute (3) UTI (urinary tract infection), bacterial Status: Acute (4) Kidney stones Status: Acute (5) History of pulmonary embolism Status: Acute
[2016-10-24] MEDS: Sodium Chloride 0.9% 1,000 ML IV SCH (23:13)
--- NOTE | 2016-10-25 01:10 | PN ---
SUBJECTIVE: The patient is 76-year-old female. The patient is seen and examined on the bedside, looking comfortable, but has the complaints of feeling like she cannot digest food properly, gassy stomach, but no nausea, vomiting or diarrhea. No hematuria or hematochezia. No headache or dizziness. PHYSICAL EXAMINATION: VITAL SIGNS: Temperature 98, pulse 78, respiratory rate 20, blood pressure 134/76, pulse oximetry is 96. HEENT: Head is normocephalic and atraumatic. Eyes, PERRLA. Extraocular muscles intact. Conjunctivae clear. Nose patent. Mucous membranes are moist. NECK: Supple. No carotid bruit. No JVD or thyromegaly. CHEST: Bilaterally symmetrical. HEART: S1 and S2 positive. LUNGS: Clear to auscultation. ABDOMEN: Soft. Bowel sounds are present. No organomegaly. EXTREMITIES: No edema. No cyanosis. NEUROLOGIC: The patient is awake and alert. Moving all four extremities. No focal deficits. MEDICATIONS: Ecotrin, Lovenox, Bactrim, levothyroxine. LABORATORY DATA: White blood cell 7.3, hemoglobin 12.7, hematocrit 37.6, and platelets 212. Sodium 140, potassium 4.0, BUN 19, creatinine 1.1, glucose 112. ASSESSMENT AND PLAN: The patient is a 76-year-old lady with syncope and collapse, pyelonephritis, hydronephrosis, nephrolithiasis, urinary tract infection, history of pulmonary embolism, gastroesophageal reflux disease, dyspepsia. Urologist consult call with Dr. Barraza, waiting for the input. Gastrointestinal and deep venous thrombosis prophylaxis. Repeat labs. We will follow up. Rosa M Do MD
[2016-10-25 01:45] LABS: RBC URINE 123 /hpf (0-3); URINE BACTERIA RARE (<OCC); URINE BILIRUBIN NEGATIVE (NEGATIVE); URINE BLOOD 2+ (NEGATIVE); URINE COLOR Yellow (YELLOW); URINE GLUCOSE (UA) NORMAL (Normal); URINE KETONE NEGATIVE (NEGATIVE); URINE LEUKOCYTE ESTERASE 3+ Leu/uL (Negative); URINE PROTEIN 1+ mg/dL (NEGATIVE); URINE UROBILINOGEN NORMAL mg/dL (0.2-1.0); WBC URINE 307 /hpf (0-5)
[2016-10-25] MEDS: Levothyroxine 25 MCG TAB PO SCH (05:45)
[2016-10-25] MEDS: Enoxaparin 60 mg Syringe SC SCH (09:17)
[2016-10-25] MEDS: Sulfamethoxazole/Trimethoprim 240 MG in Dextrose 5% In Water 250 ML IVPB SCH ×2 (10:00→21:43)
[2016-10-25] MEDS: Sodium Chloride 0.9% 1,000 ML IV SCH (12:20)
--- NOTE | 2016-10-25 14:18 | RAD ---
HISTORY: Kidney stones. COMPARISON: October 24, 2016. CT abdomen and pelvis. FINDINGS: BOWEL: Constipation without fecal impaction or obstruction. BONES: Normal. OTHER FINDINGS: Staghorn calculi left kidney. Findings better appreciated on recent CT scan. No right renal calculi identified. IMPRESSION: Staghorn calculus disease left kidney. Otherwise unremarkable study
--- NOTE | 2016-10-25 21:30 | CP.PCM.PN ---
Subjective - Date & Time of Evaluation Date of Evaluation: 10/25/16 Time of Evaluation: 21:30 - Subjective Subjective: feeling fine staghorn calculi mildly +ve stress test c/o intermittent epigastric discomfort - funny feeling in the chest Objective - Vital Signs/Intake and Output Vital Signs (last 24 hours): Temp Pulse Resp BP Pulse Ox 97.3 F L 77 20 148/80 96 10/25/16 16:00 10/25/16 16:00 10/25/16 16:00 10/25/16 16:00 10/25/16 16:00 - Medications Medications: Current Medications Aspirin (Ecotrin) 81 mg PO DAILY [facility] Last Admin: 10/25/16 09:16 Dose: 81 mg Enoxaparin Sodium (Lovenox) 60 mg SC DAILY [facility] Last Admin: 10/25/16 09:17 Dose: 60 mg Famotidine (Pepcid) 40 mg PO DAILY [facility] Last Admin: 10/25/16 09:16 Dose: 40 mg Trimethoprim/Sulfamethoxazole (240 mg/ Dextrose) 250 mls @ 250 mls/hr IVPB Q12 [facility] Last Admin: 10/25/16 10:00 Dose: 250 mls/hr Sodium Chloride (Sodium Chloride 0.9%) 1,000 mls @ 100 mls/hr IV .Q10H [facility] Last Admin: 10/25/16 12:20 Dose: 100 mls/hr Levothyroxine Sodium (Synthroid) 25 mcg PO DAILY@0630 [facility] Last Admin: 10/25/16 05:45 Dose: 25 mcg - Labs Labs: 10/23/16 07:08 10/23/16 07:08 PT 11.2 SECONDS (9.7-12.2) 10/20/16 16:27 INR 1.0 10/20/16 16:27 APTT 32 SECONDS (21-34) 10/20/16 16:27 - Constitutional Appears: Well - Head Exam Head Exam: ATRAUMATIC, NORMAL INSPECTION, NORMOCEPHALIC - Eye Exam Eye Exam: EOMI, Normal appearance, PERRL Pupil Exam: NORMAL ACCOMODATION, PERRL - ENT Exam ENT Exam: Mucous Membranes Moist, Normal Exam - Neck Exam Neck Exam: Full ROM, Normal Inspection. absent: Lymphadenopathy - Respiratory Exam Respiratory Exam: Clear to Ausculation Bilateral, NORMAL BREATHING PATTERN - Cardiovascular Exam Cardiovascular Exam: REGULAR RHYTHM, RRR, +S1, +S2, Murmur - GI/Abdominal Exam GI & Abdominal Exam: Soft, Normal Bowel Sounds. absent: Tenderness - Rectal Exam Rectal Exam: NORMAL INSPECTION - Extremities Exam Extremities Exam: Full ROM, Normal Capillary Refill, Normal Inspection. absent : Joint Swelling, Pedal Edema - Back Exam Back Exam: NORMAL INSPECTION - Neurological Exam Neurological Exam: Alert, Awake, CN II-XII Intact, Normal Gait, Oriented x3 - Psychiatric Exam Psychiatric exam: Normal Affect, Normal Mood - Skin Skin Exam: Dry, Intact, Normal Color, Warm Assessment and Plan (1) HALL (dyspnea on exertion) Assessment & Plan: mildly +ve stres test plan for further w/u after discussing with PCP Status: Acute (2) History of pulmonary embolism Status: Chronic (3) Kidney stones Assessment & Plan: nephrology following Status: Acute (4) Pyelonephritis Status: Acute (5) Syncope and collapse Assessment & Plan: etiology ? 2' to CAD Status: Acute
--- NOTE | 2016-10-26 02:58 | PN ---
DATE: 10/25/2016 SUBJECTIVE: The patient is a 76-year-old female. Looks comfortable. No nausea, vomiting or diarrhea. No hematuria. No swelling of the legs. No chest pain. No palpitation. No headache. No dizziness. Wheezing is fine. No hematochezia. PHYSICAL EXAMINATION: VITAL SIGNS: Temperature is 98.0, pulse 82, blood pressure 101/56 and respiratory rate 20. HEENT: Head is normocephalic and atraumatic. Eyes, PERRLA. Extraocular muscles intact. Conjunctivae clear. NOSE patent. Mucous membranes moist. NECK: Supple. No carotid bruits. No JVD. No thyromegaly. CHEST: Bilaterally symmetrical. HEART: S1 and S2 positive. LUNGS: Clear to auscultation. ABDOMEN: Soft. Bowel sounds present. No organomegaly. EXTREMITIES: No edema, no cyanosis. NEUROLOGIC: The patient is awake, alert. Moving all four extremities. No focal deficits. MEDICATIONS: Ecotrin, Lovenox, Pepcid, MS, Synthroid, and Bactrim. LABORATORY DATA: White blood cells 7.3; hemoglobin 12.7 hematocrit 37.6 and platelets 212. ASSESSMENT AND PLAN: The patient is a 76-year-old lady with multiple medical problems, came with syncope, collapse, pyelonephritis, hydronephrosis, nephrolithiasis, urinary tract infection, pulmonary embolism, gastroesophageal reflux disease and dyspepsia. Urologist consult called with Dr. Barraza, waiting for the input. Continue present treatment. Gastrointestinal and deep venous thrombosis prophylaxis. Repeat labs. Rosa M Do MD
[2016-10-26] MEDS: Sodium Chloride 0.9% 1,000 ML IV SCH ×2 (04:46→14:45)
[2016-10-26] MEDS: Levothyroxine 25 MCG TAB PO SCH (05:58)
[2016-10-26] MEDS: Enoxaparin 60 mg Syringe SC SCH (09:06)
[2016-10-26] MEDS: Sulfamethoxazole/Trimethoprim 240 MG in Dextrose 5% In Water 250 ML IVPB SCH ×2 (10:00→21:19)
--- NOTE | 2016-10-26 11:57 | CP.PCM.CON ---
History of Present Illness - History of Present Illness History of Present Illness: Please see dictated report Thank you YS Past Patient History - Past Medical History & Family History Past Medical History?: Yes - Past Social History Smoking Status: Former Smoker - CARDIAC Hx Cardiac Disorders: No Hx Angina: No Hx Atrial Fibrillation: No Hx Cardia Arrhythmia: No Hx Circulatory Problems: No Hx Congestive Heart Failure: No Hx Heart Attack: No Hx Heart Murmur: No Hx Heart Transplant: No Hx Hypercholesterolemia: No Hx Hypertension: No Hx Hypotension: No Hx Internal Defibrillator: No Hx Mitral Valve Prolapse: No Hx Pacemaker: No Hx Peripheral Edema: No Hx Peripheral Vascular Disease: No - PULMONARY Hx Respiratory Disorders: Yes Hx Asthma: No Hx Bronchitis: No Hx Chronic Obstructive Pulmonary Disease (COPD): Yes Hx Emphysema: No Hx Lung Cancer: No Hx Pneumonia: No Hx Pulmonary Edema: No Hx Pulmonary Embolism: Yes Hx Respiratory Aspiration: No Hx Respiratory Tract Infection: No Hx Sleep Apnea: No Hx Tuberculosis: No - NEUROLOGICAL Hx Neurological Disorder: No Hx Alzheimer's Disease: No HX Cerebrovascular Accident: No Hx Dementia: No Hx Dizziness: No Hx Meningitis: No Hx Migraine: No Hx Multiple Sclerosis: No Hx Paralysis: No Hx Parkinson's Disease: No Hx Seizures: No Hx Syncope: Yes Hx Transient Ischemic Attacks (TIA): No Hx Vertigo: No - HEENT Hx HEENT Problems: No Hx Blind: No Hx Cataracts: No Hx Deafness: No Hx Difficulty Chewing: No Hx Epistaxis: No Hx Glaucoma: No Hx Macular Degeneration: No Hx Sinusitis: No - RENAL Hx Chronic Kidney Disease: Yes Hx Dialysis: No Hx Kidney Stones: Yes Hx Neurogenic Bladder: No Hx Pyelonephritis: No Hx Renal (Kidney) Cancer: No Hx Renal Failure: No - ENDOCRINE/METABOLIC Hx Endocrine Disorders: No Hx Adrenal Cancer: No Hx Diabetes Insipidus: No Hx Diabetes Mellitus Type 1: No Hx Diabetes Mellitus Type 2: No Hx Hyperthyroidism: No Hx Hypothyroidism: No Hx Systemic Lupus Erythematosus: No - HEMATOLOGICAL/ONCOLOGICAL Hx Blood Disorders: No Hx AIDS: No Hx Anemia: No Hx Blood Transfusions: No Hx Blood Transfusion Reaction: No Hx Bruising: No Hx Cancer: No Hx Chemotherapy: No Hx Cirrhosis: No Hx Gum Bleeding: No Hx Hemophilia: No Hx Hepatitis A: No Hx Hepatitis B: No Hx Hepatitis C: No Hx Human Immunodeficiency Virus (HIV): No Hx Leukemia: No Hx Metastesis: No Hx Shingles: No Hx Sickle Cell Disease: No Hx Unexplained Bleeding: No Hx von Willebrand's Disease: No - INTEGUMENTARY Hx Dermatological Problems: No Hx Basil Cell: No Hx Kang: No Hx Cellulitis: No Hx Eczema: No Hx Melanoma: No Hx Psoriasis: No Hx Squamous Cell: No - MUSCULOSKELETAL/RHEUMATOLOGICAL Hx Musculoskeletal Disorders: No Hx Arthritis: No Hx Back Pain: No Hx Degenerative Joint Disease: No Hx Falls: Yes Hx Fractures: No Hx Gout: No Hx Herniated Disk: No Hx Myasthenia Gravis: No Hx Osteoarthritis: No Hx Osteomyelitis: No Hx Osteoporosis: No Hx Rhabdomyolysis: No Hx Rheumatoid Arthritis: No Hx Spinal Stenosis: No Hx Unsteady Gait: No - GASTROINTESTINAL Hx Gastrointestinal Disorders: No Hx Bowel Surgery: No Hx Clostridium Difficile: No Hx Colitis: No Hx Colostomy: No Hx Constipation: No Hx Crohn's Disease: No Hx Diarrhea: No Hx Diverticulitis: No Hx Esophageal Varices: No Hx Fatty Liver Disease: No Hx Gall Bladder Disease: No Hx Gastritis: No Hx Gastroesophageal Reflux: No Hx Hemorrhoids: No Hx Ileostomy: No Hx Irritable Bowel: No Hx Liver Failure: No Hx Nausea: No Hx Pancreatitis: No HX Swallowing Problems: No Hx Ulcer: No Hx Vomiting: No - GENITOURINARY/GYNECOLOGICAL Hx Genitourinary Disorders: No Hx Bladder Cancer: No Hx Bladder Stone: No Hx Cervical Cancer: No Hx Hematuria: No Hx Incontinence: No Hx Ovarian Cancer: No Hx Postmenopausal Bleeding: No Hx Reproductive Disorders: No Hx Sexually Transmitted Disorders: No Hx Uterine Cancer: No Hx Urinary Tract Infection: No - PSYCHIATRIC Hx Psychophysiologic Disorder: No Hx Anxiety: No Hx Bipolar Disorder: No Hx Depression: No Hx Emotional Abuse: No Hx Hallucinations: No Hx Panic Symptoms: No Hx Paranoia: No Hx Post Traumatic Stress Disorder: No Hx Psychosis: No Hx Physical Abuse: No Hx Schizophrenia: No Hx Sexual Abuse: No Hx Substance Use: No - SURGICAL HISTORY Hx Surgeries: No Hx Abdominal Aortic Aneurysm Repair: No Hx Amputation: No Hx Angiogram: No Hx Angioplasty: No Hx Appendectomy: No Hx Arteriovenous Shunt: No Hx Arthroscopy: No Hx Bile Duct Stent: No Hx Breast Biopsy: No Hx Cataract Extraction: No Hx Cardiac Catheterization: No Hx Carotid Endarterectomy: No Hx Section: No Hx Cholecystectomy: No Hx Coronary Artery Bypass Graft: No Hx Coronary Stent: No Hx Dilation and Curettage: No Hx Eye Surgery: No Hx Femoral-Popliteal Bypass Graft: No Hx Gastric Bypass Surgery: No Hx Herniorrhaphy: No Hx Hysterectomy: No Hx Joint Replacement: No Hx Kidney Transplant: No Hx Liver Transplant: No Hx Mastectomy: No Hx Musculoskeletal Surgery: No Hx Open Heart Surgery: No Hx Open Reduction Internal Fixation: No Hx Orthopedic Surgery: No Hx Parathyroidectomy: No Hx Penile Implant: No Hx Pulmonary Surgery: No Hx Splenectomy: No Hx Thyroidectomy: No Hx Tonsillectomy: No Hx Tubal Ligation: No Hx Valve Replacement: No Hx Vascular Surgery: No Hx Vascular Access Device: No - ANESTHESIA Hx Anesthesia: Yes Hx Anesthesia Reactions: No Hx Malignant Hyperthermia: No Has any member of the family had a problem w/ anesthesia?: No Meds Home Medications: Home Medication List Medication Instructions Recorded Confirmed Type Aspirin [Ecotrin] 81 mg PO DAILY 10/28/16 Rx Famotidine [Pepcid] 40 mg PO DAILY #15 tab 10/28/16 Rx Levothyroxine [Synthroid] 25 mcg PO DAILY@0630 #30 tab 10/28/16 Rx Sulfamethoxazole/Trimethoprim 1 tab PO Q12H #10 tab 10/28/16 Rx [Bactrim DS 800 mg-160 mg] Allergies/Adverse Reactions: Allergies Allergy/AdvReac Type Severity Reaction Status Date / Time Penicillins Allergy ANAPHYLAXIS Verified 10/20/16 15:36 - Medications Medications: Current Medications Aspirin (Ecotrin) 81 mg PO DAILY [facility] Last Admin: 10/26/16 09:05 Dose: 81 mg Enoxaparin Sodium (Lovenox) 60 mg SC DAILY [facility] Last Admin: 10/26/16 09:06 Dose: 60 mg Famotidine (Pepcid) 40 mg PO DAILY [facility] Last Admin: 10/26/16 09:05 Dose: 40 mg Trimethoprim/Sulfamethoxazole (240 mg/ Dextrose) 250 mls @ 250 mls/hr IVPB Q12 [facility] Last Admin: 10/25/16 21:43 Dose: 250 mls/hr Sodium Chloride (Sodium Chloride 0.9%) 1,000 mls @ 100 mls/hr IV .Q10H [facility] Last Admin: 10/26/16 04:46 Dose: 100 mls/hr Levothyroxine Sodium (Synthroid) 25 mcg PO DAILY@0630 [facility] Last Admin: 10/26/16 05:58 Dose: 25 mcg Results - Vital Signs Recent Vital Signs: Last Vital Signs Temp 98.1 F 10/26/16 07:40 Pulse 78 10/26/16 07:40 Resp 18 10/26/16 07:40 BP 124/72 10/26/16 07:40 Pulse Ox 96 10/26/16 07:40 - Labs Result Diagrams: 10/27/16 07:00 10/27/16 07:00 Assessment & Plan - Assessment and Plan (Free Text) Assessment: IMP: UTI Hx of hematuria urolithiasis - Date & Time Date: 10/26/16 Time: 11:10
--- NOTE | 2016-10-26 12:51 | CP.PCM.PN ---
Subjective - Date & Time of Evaluation Date of Evaluation: 10/26/16 Time of Evaluation: 12:45 - Subjective Subjective: feeling fatigued and lethargic intermittent episodes of feeling funny in the chest Objective - Vital Signs/Intake and Output Vital Signs (last 24 hours): Temp Pulse Resp BP Pulse Ox 98.1 F 78 18 124/72 96 10/26/16 07:40 10/26/16 07:40 10/26/16 07:40 10/26/16 07:40 10/26/16 07:40 Intake and Output: 10/26/16 10/26/16 06:59 18:59 Intake Total 1850 Balance 1850 - Medications Medications: Current Medications Aspirin (Ecotrin) 81 mg PO DAILY [facility] Last Admin: 10/26/16 09:05 Dose: 81 mg Enoxaparin Sodium (Lovenox) 60 mg SC DAILY [facility] Last Admin: 10/26/16 09:06 Dose: 60 mg Famotidine (Pepcid) 40 mg PO DAILY [facility] Last Admin: 10/26/16 09:05 Dose: 40 mg Trimethoprim/Sulfamethoxazole (240 mg/ Dextrose) 250 mls @ 250 mls/hr IVPB Q12 [facility] Last Admin: 10/25/16 21:43 Dose: 250 mls/hr Sodium Chloride (Sodium Chloride 0.9%) 1,000 mls @ 100 mls/hr IV .Q10H [facility] Last Admin: 10/26/16 04:46 Dose: 100 mls/hr Levothyroxine Sodium (Synthroid) 25 mcg PO DAILY@0630 [facility] Last Admin: 10/26/16 05:58 Dose: 25 mcg - Labs Labs: 10/23/16 07:08 10/23/16 07:08 PT 11.2 SECONDS (9.7-12.2) 10/20/16 16:27 INR 1.0 10/20/16 16:27 APTT 32 SECONDS (21-34) 10/20/16 16:27 - Constitutional Appears: Well - Head Exam Head Exam: ATRAUMATIC, NORMAL INSPECTION, NORMOCEPHALIC - Eye Exam Eye Exam: EOMI, Normal appearance, PERRL Pupil Exam: NORMAL ACCOMODATION, PERRL - ENT Exam ENT Exam: Mucous Membranes Moist, Normal Exam - Neck Exam Neck Exam: Full ROM, Normal Inspection. absent: Lymphadenopathy - Respiratory Exam Respiratory Exam: Clear to Ausculation Bilateral, NORMAL BREATHING PATTERN - Cardiovascular Exam Cardiovascular Exam: REGULAR RHYTHM, RRR, +S1, +S2, Murmur - GI/Abdominal Exam GI & Abdominal Exam: Soft, Normal Bowel Sounds. absent: Tenderness - Rectal Exam Rectal Exam: NORMAL INSPECTION - Extremities Exam Extremities Exam: Full ROM, Normal Capillary Refill, Normal Inspection. absent : Joint Swelling, Pedal Edema - Back Exam Back Exam: NORMAL INSPECTION - Neurological Exam Neurological Exam: Alert, Awake, CN II-XII Intact, Normal Gait, Oriented x3 - Psychiatric Exam Psychiatric exam: Normal Affect, Normal Mood - Skin Skin Exam: Dry, Intact, Normal Color, Warm Assessment and Plan (1) HALL (dyspnea on exertion) Assessment & Plan: Anginal equivalent intermittent episodes of chest pain mildly abnormal stress test plan for LHCx / RHCx in am NPO p MN Status: Acute (2) History of pulmonary embolism Assessment & Plan: stable evaluate pulonary pressures with RHCx Status: Chronic (3) Kidney stones Assessment & Plan: following Status: Acute (4) Pyelonephritis Assessment & Plan: abx per and ID Status: Acute (5) Syncope and collapse Assessment & Plan: etiology ? CAD vs. pulmonary HTN Status: Acute
--- NOTE | 2016-10-26 14:10 | CP.PCM.PN ---
Subjective - Date & Time of Evaluation Date of Evaluation: 10/26/16 Time of Evaluation: 14:10 - Subjective Subjective: CHIEF COMPLAINTS TODAY : AFEBRILE, AMBULATING. DENIES SHORTNESS OF BREATH OR CHEST PAIN DENIES ABDOMINAL PAIN seen by VINH Barraza 10/26 ROS. HEENT : N. Resp : No cough, wheezing ,pleuritic CP ,or hemoptysis Cardio : No anginal CP, PND, orthopnea, palpitation GI : improved LT. FLANK PAIN, NO n/v ,diarrhea or GI bleeding . UI PROGRAMMER : No headache, vertigo, focal deficit. Musculoskel : No joint swelling , Derm : No rash Psych : Normal affect. Ext : No swelling ,calf pain PE. Pt. is alert awake in no distress. V.S As noted in the chart Head ,ear nose,throat and eyes : Normal. Neck : Supple with normal carotids. Lungs: Clear air entry. Heart : S1 & S2 normal with S4. No murmur. Abd : -ve FLANK PAIN with normal bowel sounds. Neuro : Moves all ext. with no localized deficit. Ext : No edema with intact pulses.Non tender calves Derm : No rashes or decubitus ulcer. LABS/RADIOLOGY: REPEAT URINE CULTURES -VE GROWTH URINE CULTURE +VE Klebsiella pneumoniae ESBL +VE S -BACTRIM R-AZACTAM ABDOMINAL ULTRASOUND left staghorn calculi,, no hydronephrosis. bRAIN MRI -VE. ASSESSMENT : COMPLICATED UTI. LEFT STAGHORN CALCULI. SYNCOPE. HX PE PLAN; PATIENT STARTED ON sYNTHROID PER PMD. ON iv bACTRIM 240 MG iv PIGGYBACK EVERY 12 HOURLY 10/22 ( PATIENT ALLERGIC TO PENICILLIN-ANAPHYLAXIS ) F/U bmp, cbc IN A.M. EVALUATION seen. SYNCOPE WORKUP IN PROGRESS. PER CARDIOLOGY Objective - Vital Signs/Intake and Output Vital Signs (last 24 hours): Temp Pulse Resp BP Pulse Ox 98.1 F 78 18 124/72 96 10/26/16 07:40 10/26/16 07:40 10/26/16 07:40 10/26/16 07:40 10/26/16 07:40 Intake and Output: 10/26/16 10/26/16 06:59 18:59 Intake Total 1850 Balance 1850 - Medications Medications: Current Medications Aspirin (Ecotrin) 81 mg PO DAILY [facility] Last Admin: 10/26/16 09:05 Dose: 81 mg Enoxaparin Sodium (Lovenox) 60 mg SC DAILY [facility] Last Admin: 10/26/16 09:06 Dose: 60 mg Famotidine (Pepcid) 40 mg PO DAILY [facility] Last Admin: 10/26/16 09:05 Dose: 40 mg Trimethoprim/Sulfamethoxazole (240 mg/ Dextrose) 250 mls @ 250 mls/hr IVPB Q12 [facility] Last Admin: 10/26/16 10:00 Dose: 250 mls/hr Sodium Chloride (Sodium Chloride 0.9%) 1,000 mls @ 100 mls/hr IV .Q10H [facility] Last Admin: 10/26/16 04:46 Dose: 100 mls/hr Levothyroxine Sodium (Synthroid) 25 mcg PO DAILY@0630 [facility] Last Admin: 10/26/16 05:58 Dose: 25 mcg - Labs Labs: 10/23/16 07:08 10/23/16 07:08 PT 11.2 SECONDS (9.7-12.2) 10/20/16 16:27 INR 1.0 10/20/16 16:27 APTT 32 SECONDS (21-34) 10/20/16 16:27 Assessment and Plan (1) Syncope and collapse Status: Acute (2) Pyelonephritis Status: Acute (3) UTI (urinary tract infection), bacterial Status: Acute (4) Kidney stones Status: Acute (5) History of pulmonary embolism Status: Chronic
[2016-10-27] MEDS: Sodium Chloride 0.9% 1,000 ML IV SCH ×3 (00:45→21:39)
--- NOTE | 2016-10-27 06:17 | PN ---
DATE: 10/26/2016 SUBJECTIVE: The patient is a 76-year-old female. The patient was seen and examined on the bedside, looking comfortable, but still complaining about a funny feeling in the chest. Her cough is better. No nausea, vomiting, or diarrhea. No hematuria or hematochezia. PHYSICAL EXAMINATION VITAL SIGNS: Temperature is 97.9, pulse 58, blood pressure 148/74, and respiratory rate 20. HEENT: Head is normocephalic and atraumatic. Eyes: PERRLA, extraocular muscles intact, conjunctivae clear. Nose patent. Mucous membranes moist. NECK: Supple. No carotid bruits. No JVD. No thyromegaly. CHEST: Bilaterally symmetrical. HEART: S1 and S2 positive. LUNGS: Clear to auscultation. ABDOMEN: Soft. Bowel sounds present. No organomegaly. EXTREMITIES: No edema, no cyanosis. NEUROLOGIC: The patient is awake, alert. Moving all 4 extremities. No focal deficits. MEDICATIONS: Ecotrin, Lovenox, Pepcid, Solu-Medrol, Synthroid, and Bactrim. LABORATORY DATA: White blood cells 7.3, hemoglobin 12.7, hematocrit 37.6, and platelets 212. Sodium 140 and potassium 4.0. ASSESSMENT AND PLAN: The patient is a 76-year-old lady with: 1. Dyspnea on exertion, anginal equivalent, intermittent episodes of chest pain, and mildly abnormal stress test. Plan for catheterization in the a.m. She is to be n.p.o. after midnight as per Dr. Garrison Florian and I had a lengthy discussion done with Dr. Garrison Florian and the patient. 2. History of pulmonary embolism, stable. Her pulmonary pressure will be checked on catheterization. 3. Kidney stones. Dr. Henry Barraza is on the case, his consult called. 4. Pyelonephritis, continue antibiotics. 5. Syncope and collapse. May be coronary artery disease, may be pulmonary hypertension. 6. Seen by Dr. Garrison Florian and infectious disease Dr. Redd Mcdonnell and Dr. Barraza. GI and DVT prophylaxis. Repeat labs. We will follow. Rosa M Do MD
[2016-10-27] MEDS: Levothyroxine 25 MCG TAB PO SCH (07:00)
[2016-10-27 07:12] LABS: HEMATOCRIT 35.7 % (34.0-47.0); MEAN CELL VOLUME 85.4 fL (81.0-99.0); MEAN CORPUSCULAR HEMOGLOBIN 28.9 pg (27.0-31.0); MEAN CORPUSCULAR HGB CONC 33.8 g/dL (33.0-37.0); RED CELL DISTRIBUTION WIDTH 14.9 % (11.5-14.5); WHITE BLOOD COUNT 7.5 K/uL (4.8-10.8)
[2016-10-27 07:34] LABS: CHLORIDE 105 mmol/L (98-107)
[2016-10-27 07:35] LABS: POTASSIUM 4.1 mmol/L (3.6-5.2); SODIUM 141 mmol/L (132-148)
[2016-10-27 07:37] LABS: ALB/GLOB RATIO 1.2 (1.0-2.1); ALKALINE PHOSPHATASE 104 U/L (38-126); ALT/SGPT 42 U/L (9-52); AST/SGOT 33 U/L (14-36); BILIRUBIN,TOTAL 0.4 mg/dL (0.2-1.3); BLOOD UREA NITROGEN 15 mg/dL (7-17); CARBON DIOXIDE 25 mmol/L (22-30); GFR AFRICAN-AMERICAN > 60; GLUCOSE,RANDOM 89 mg/dL (65-105); TOTAL PROTEIN 6.3 g/dL (6.3-8.3)
[2016-10-27 07:38] LABS: CALCIUM 8.8 mg/dl (8.6-10.4)
[2016-10-27] MEDS ORDERED: Midazolam 2 MG/2 ML VIAL ONE (07:55)
[2016-10-27] MEDS ORDERED: Nitroglycerin 50mg in D5W 50 MG/250 ML BOTTLE IV ONE (07:56)
[2016-10-27] MEDS ORDERED: Iodixanol 320 MG/ML 100 ML BOTTLE IV ONE (07:57)
--- NOTE | 2016-10-27 09:34 | CP.PCM.PN ---
Subjective - Date & Time of Evaluation Date of Evaluation: 10/27/16 Time of Evaluation: 09:30 - Subjective Subjective: had cardiac catheterization this am showing mild distal RCA and LAD disease intermittent epigastric discomfort Objective - Vital Signs/Intake and Output Vital Signs (last 24 hours): Temp Pulse Resp BP Pulse Ox 98.3 F 75 20 145/89 96 10/27/16 06:40 10/27/16 07:40 10/27/16 06:40 10/27/16 06:40 10/27/16 06:40 Intake and Output: 10/27/16 10/27/16 06:59 18:59 Intake Total 800 Balance 800 - Medications Medications: Current Medications Aspirin (Ecotrin) 81 mg PO DAILY [facility] Last Admin: 10/26/16 09:05 Dose: 81 mg Enoxaparin Sodium (Lovenox) 60 mg SC DAILY [facility] Last Admin: 10/26/16 09:06 Dose: 60 mg Famotidine (Pepcid) 40 mg PO DAILY [facility] Last Admin: 10/26/16 09:05 Dose: 40 mg Trimethoprim/Sulfamethoxazole (240 mg/ Dextrose) 250 mls @ 250 mls/hr IVPB Q12 [facility] Last Admin: 10/26/16 21:19 Dose: 250 mls/hr Sodium Chloride (Sodium Chloride 0.9%) 1,000 mls @ 100 mls/hr IV .Q10H [facility] Last Admin: 10/27/16 00:45 Dose: Not Given Levothyroxine Sodium (Synthroid) 25 mcg PO DAILY@0630 [facility] Last Admin: 10/27/16 07:00 Dose: Not Given - Labs Labs: 10/27/16 07:00 10/27/16 07:00 PT 11.2 SECONDS (9.7-12.2) 10/20/16 16:27 INR 1.0 10/20/16 16:27 APTT 32 SECONDS (21-34) 10/20/16 16:27 - Constitutional Appears: Well - Head Exam Head Exam: ATRAUMATIC, NORMAL INSPECTION, NORMOCEPHALIC - Eye Exam Eye Exam: EOMI, Normal appearance, PERRL Pupil Exam: NORMAL ACCOMODATION, PERRL - ENT Exam ENT Exam: Mucous Membranes Moist, Normal Exam - Neck Exam Neck Exam: Full ROM, Normal Inspection. absent: Lymphadenopathy - Respiratory Exam Respiratory Exam: Clear to Ausculation Bilateral, NORMAL BREATHING PATTERN - Cardiovascular Exam Cardiovascular Exam: REGULAR RHYTHM, +S1, +S2, Murmur - GI/Abdominal Exam GI & Abdominal Exam: Soft, Normal Bowel Sounds. absent: Tenderness - Extremities Exam Extremities Exam: Full ROM, Normal Capillary Refill, Normal Inspection. absent : Joint Swelling, Pedal Edema - Back Exam Back Exam: NORMAL INSPECTION - Neurological Exam Neurological Exam: Alert, Awake, CN II-XII Intact, Normal Gait, Oriented x3 - Psychiatric Exam Psychiatric exam: Normal Affect, Normal Mood - Skin Skin Exam: Dry, Intact, Normal Color, Warm Assessment and Plan (1) Syncope and collapse Assessment & Plan: etiology possible vasovagal mild cad on cardiac cath Status: Acute (2) HALL (dyspnea on exertion) Assessment & Plan: Etiology combined diastolic CHF with pulmonary component bronchodilators as needed Status: Acute (3) History of pulmonary embolism Assessment & Plan: pulm inh Status: Chronic (4) Kidney stones Assessment & Plan: urology following Status: Acute (5) Pyelonephritis Assessment & Plan: Abx per ID/primary team Status: Acute
[2016-10-27] MEDS: Enoxaparin 60 mg Syringe SC SCH (11:45)
--- NOTE | 2016-10-27 13:14 | CP.PCM.PN ---
<Rosa M Do - Last Filed: 10/28/16 00:16> Objective - Vital Signs/Intake and Output Vital Signs (last 24 hours): Temp Pulse Resp BP Pulse Ox 97.2 F L 78 20 129/68 96 10/27/16 15:41 10/27/16 15:59 10/27/16 15:41 10/27/16 15:41 10/27/16 15:41 - Medications Medications: Current Medications Aspirin (Ecotrin) 81 mg PO DAILY [facility] Last Admin: 10/26/16 09:05 Dose: 81 mg Enoxaparin Sodium (Lovenox) 60 mg SC DAILY [facility] Last Admin: 10/27/16 11:45 Dose: 60 mg Famotidine (Pepcid) 40 mg PO DAILY [facility] Last Admin: 10/27/16 11:45 Dose: 40 mg Trimethoprim/Sulfamethoxazole (240 mg/ Dextrose) 250 mls @ 250 mls/hr IVPB Q12 [facility] Last Admin: 10/27/16 21:39 Dose: 250 mls/hr Levothyroxine Sodium (Synthroid) 25 mcg PO DAILY@0630 [facility] Last Admin: 10/27/16 07:00 Dose: Not Given - Labs Labs: 10/27/16 07:00 10/27/16 07:00 PT 11.2 SECONDS (9.7-12.2) 10/20/16 16:27 INR 1.0 10/20/16 16:27 APTT 32 SECONDS (21-34) 10/20/16 16:27 Assessment and Plan - Assessment and Plan (Free Text) Assessment: (1) Syncope and collapse Assessment & Plan: etiology possible vasovagal mild cad on cardiac cath Status: Acute (2) HALL (dyspnea on exertion) Assessment & Plan: Etiology combined diastolic CHF with pulmonary component bronchodilators as needed Status: Acute (3) History of pulmonary embolism Assessment & Plan: pulm inh Status: Chronic (4) Kidney stones Assessment & Plan: urology following Status: Acute (5) Pyelonephritis Assessment & Plan: Abx per ID/primary team Status: Acute <Redd Mcdonnell - Last Filed: 10/28/16 04:46> Subjective - Date & Time of Evaluation Date of Evaluation: 10/27/16 Time of Evaluation: 13:14 - Subjective Subjective: CHIEF COMPLAINTS TODAY : AFEBRILE, NO NEW COMPLAINTS S/P CC findings noted ROS. HEENT : N. Resp : No cough, wheezing ,pleuritic CP ,or hemoptysis Cardio : No anginal CP, PND, orthopnea, palpitation GI : improved LT. FLANK PAIN, NO n/v ,diarrhea or GI bleeding . BROADCAST OPERATIONS TECHNICIAN : No headache, vertigo, focal deficit. Musculoskel : No joint swelling , Derm : No rash Psych : Normal affect. Ext : No swelling ,calf pain PE. Pt. is alert awake in no distress. V.S As noted in the chart Head ,ear nose,throat and eyes : Normal. Neck : Supple with normal carotids. Lungs: Clear air entry. Heart : S1 & S2 normal with S4. No murmur. Abd : -ve FLANK PAIN with normal bowel sounds. Neuro : Moves all ext. with no localized deficit. Ext : No edema with intact pulses.Non tender calves Derm : No rashes or decubitus ulcer. LABS/RADIOLOGY: REPEAT URINE CULTURES -VE GROWTH URINE CULTURE +VE Klebsiella pneumoniae ESBL +VE S -BACTRIM R-AZACTAM ABDOMINAL ULTRASOUND left staghorn calculi,, no hydronephrosis. bRAIN MRI -VE. ASSESSMENT : COMPLICATED UTI. LEFT STAGHORN CALCULI. SYNCOPE. HX PE PLAN; PATIENT STARTED ON sYNTHROID PER PMD. ON iv bACTRIM 240 MG iv PIGGYBACK EVERY 12 HOURLY 10/22 ( PATIENT ALLERGIC TO PENICILLIN-ANAPHYLAXIS ) can switch to by mouth Bactrim one double strength twice a day x 5days in a.m. f/u as as per PER CARDIOLOGY Objective - Vital Signs/Intake and Output Vital Signs (last 24 hours): Temp Pulse Resp BP Pulse Ox 98.3 F 75 20 145/89 96 10/27/16 06:40 10/27/16 07:40 10/27/16 06:40 10/27/16 06:40 10/27/16 06:40 Intake and Output: 10/27/16 10/27/16 06:59 18:59 Intake Total 800 Balance 800 - Medications Medications: Current Medications Aspirin (Ecotrin) 81 mg PO DAILY [facility] Last Admin: 10/26/16 09:05 Dose: 81 mg Enoxaparin Sodium (Lovenox) 60 mg SC DAILY [facility] Last Admin: 10/27/16 11:45 Dose: 60 mg Famotidine (Pepcid) 40 mg PO DAILY [facility] Last Admin: 10/27/16 11:45 Dose: 40 mg Trimethoprim/Sulfamethoxazole (240 mg/ Dextrose) 250 mls @ 250 mls/hr IVPB Q12 [facility] Last Admin: 10/26/16 21:19 Dose: 250 mls/hr Sodium Chloride (Sodium Chloride 0.9%) 1,000 mls @ 100 mls/hr IV .Q10H [facility] Last Admin: 10/27/16 12:00 Dose: 100 mls/hr Levothyroxine Sodium (Synthroid) 25 mcg PO DAILY@0630 [facility] Last Admin: 10/27/16 07:00 Dose: Not Given - Labs Labs: 10/27/16 07:00 10/27/16 07:00 PT 11.2 SECONDS (9.7-12.2) 10/20/16 16:27 INR 1.0 10/20/16 16:27 APTT 32 SECONDS (21-34) 10/20/16 16:27 Assessment and Plan (1) Syncope and collapse Status: Acute (2) Pyelonephritis Status: Acute (3) UTI (urinary tract infection), bacterial Status: Acute (4) Kidney stones Status: Acute (5) History of pulmonary embolism Status: Chronic
--- NOTE | 2016-10-27 18:11 | CARDCATH ---
PROCEDURE DATE: 10/27/2016 INDICATIONS: The patient is a 76-year-old female with past medical history significant for 30 pack-year history of smoking, COPD, hypertension who presented with an episode of syncope and intermittent episodes of chest pain. The patient underwent Lexiscan, nuclear stress test which showed somewhat equivocal changes and mild apical defect. She was therefore brought to the blender laborer for further evaluation and treatment of concerns for CAD. PROCEDURE PERFORMED: Left heart catheterization with selective left and right coronary angiograms, left ventriculograms, 6-Senegalese right radial artery access, risk band deployment for hemostasis. TECHNIQUE PROCEDURE: After obtaining informed consent, the patient was brought to the cardiac blender laborer in post-absorptive, non-sedated state. The patient was prepped and draped in the usual sterile fashion. A 2% Xylocaine was used for infiltration anesthesia. Using modified Seldinger technique, a 6-Senegalese sheath was introduced into the right radial artery subsequently over J-wire, JL-3.5 and JR-4 diagnostic catheters were used to engage the left and right coronary systems. Coronary angiograms were performed in different orthogonal views subsequently over a J-wire, angled pigtail catheter were advanced across the aortic valve into the LV. A left ventricular exam was performed in the VILLA view. ANGIOGRAPHIC FINDINGS: Right coronary artery, large-sized vessel gives off an RV branch, distally gives off the PDA with small perforators, mild luminal irregularities noted with distal RCA 30% to 40% stenosis. Left coronary system, left circumflex artery, large-sized vessel gives off a small branch going into the AV groove and gives a large obtuse marginal branch which bifurcate into a superior and inferior branches, distally the superior, inferior branches of the obtuse marginal have minimal irregularities. Left main patent bifurcates into LAD and left circumflex coronary artery. Left anterior descending artery is a dual headed circulation, distally the inferior head gives of the septal branches, distally has a moderate 40% to 50% stenosis with mild irregularities. Left ventricular ejection fraction 55% to 60%, left ventricular and diastolic pressure was 80 mmHg. IMPRESSION: Nonobstructive coronary artery disease, normal LVF, borderline elevated EDP. RECOMMENDATIONS: Aggressive medical management and risk factor modification. Garrison Florian MD MTDD
[2016-10-27] MEDS: Sulfamethoxazole/Trimethoprim 240 MG in Dextrose 5% In Water 250 ML IVPB SCH (21:39)
--- NOTE | 2016-10-28 00:18 | CP.PCM.PN ---
Subjective - Date & Time of Evaluation Date of Evaluation: 10/27/16 Time of Evaluation: 11:30 - Subjective Subjective: had cardiac catheterization this am showing mild distal RCA and LAD disease intermittent epigastric discomfort , otherwise feeling better Objective - Vital Signs/Intake and Output Vital Signs (last 24 hours): Temp Pulse Resp BP Pulse Ox 97.2 F L 78 20 129/68 96 10/27/16 15:41 10/27/16 15:59 10/27/16 15:41 10/27/16 15:41 10/27/16 15:41 - Medications Medications: Current Medications Aspirin (Ecotrin) 81 mg PO DAILY [facility] Last Admin: 10/26/16 09:05 Dose: 81 mg Enoxaparin Sodium (Lovenox) 60 mg SC DAILY [facility] Last Admin: 10/27/16 11:45 Dose: 60 mg Famotidine (Pepcid) 40 mg PO DAILY [facility] Last Admin: 10/27/16 11:45 Dose: 40 mg Trimethoprim/Sulfamethoxazole (240 mg/ Dextrose) 250 mls @ 250 mls/hr IVPB Q12 [facility] Last Admin: 10/27/16 21:39 Dose: 250 mls/hr Levothyroxine Sodium (Synthroid) 25 mcg PO DAILY@0630 [facility] Last Admin: 10/27/16 07:00 Dose: Not Given - Labs Labs: 10/27/16 07:00 10/27/16 07:00 PT 11.2 SECONDS (9.7-12.2) 10/20/16 16:27 INR 1.0 10/20/16 16:27 APTT 32 SECONDS (21-34) 10/20/16 16:27 - Constitutional Appears: Well - Head Exam Head Exam: ATRAUMATIC, NORMAL INSPECTION, NORMOCEPHALIC - Eye Exam Eye Exam: EOMI, Normal appearance, PERRL Pupil Exam: NORMAL ACCOMODATION, PERRL - ENT Exam ENT Exam: Mucous Membranes Moist, Normal Exam - Neck Exam Neck Exam: Full ROM, Normal Inspection. absent: Lymphadenopathy - Respiratory Exam Respiratory Exam: Clear to Ausculation Bilateral, NORMAL BREATHING PATTERN - Cardiovascular Exam Cardiovascular Exam: REGULAR RHYTHM, +S1, +S2. absent: Murmur - GI/Abdominal Exam GI & Abdominal Exam: Soft, Normal Bowel Sounds. absent: Tenderness - Rectal Exam Rectal Exam: NORMAL INSPECTION - Exam Exam: Circumcision, NORMAL INSPECTION External exam: NORMAL EXTERNAL EXAM Speculum exam: NORMAL SPECULUM EXAM Bimanual exam: NORMAL BIMANUAL EXAM - Extremities Exam Extremities Exam: Full ROM, Normal Capillary Refill, Normal Inspection. absent : Joint Swelling, Pedal Edema - Back Exam Back Exam: NORMAL INSPECTION - Neurological Exam Neurological Exam: Alert, Awake, CN II-XII Intact, Normal Gait, Oriented x3 - Psychiatric Exam Psychiatric exam: Normal Affect, Normal Mood - Skin Skin Exam: Dry, Intact, Normal Color, Warm
[2016-10-28] MEDS: Levothyroxine 25 MCG TAB PO SCH (06:12)
[2016-10-28 06:15] VITALS: RESP 20
[2016-10-28] MEDS: Enoxaparin 60 mg Syringe SC SCH (10:06)
[2016-10-28] MEDS: Sulfamethoxazole/Trimethoprim 240 MG in Dextrose 5% In Water 250 ML IVPB SCH (10:06)
--- NOTE | 2016-10-28 12:35 | PCM.URO ---
Urology Progress Note - General General: No Complaints, Tolerating Diet - Subjective Abdominal Pain: No Flank Pain: No Nausea: No Vomiting: No Voiding Well: Yes Dysuria: No Hematuria: No Good Stream: Yes Stone Passed: No Dsypnea: No Chest Pain: No Fever & Chills: No - Objective Lab Studies: Reviewed (repeat culture negative) Intake & Output: Intake & Output 10/27/16 10/28/16 10/28/16 18:59 06:59 18:59 Intake Total 1040 Balance 1040 Intake: Intake, IV Amount 800 Left Hand 800 Oral 240 Other: # Voids Urine, Voided 5 # Bowel Movements 0 Vital Signs: Vital Signs - 24 hr 10/27/16 10/27/16 10/27/16 15:19 15:41 15:59 Temperature 97.2 F L Pulse Rate 73 78 Respiratory 20 Rate Blood Pressure 129/68 O2 Sat by Pulse 95 96 Oximetry 10/27/16 10/28/16 10/28/16 23:45 00:45 04:00 Temperature 98.1 F 97.9 F Pulse Rate 87 87 78 Respiratory 18 20 Rate Blood Pressure 125/64 125/69 O2 Sat by Pulse 94 L 95 Oximetry 10/28/16 10/28/16 08:00 08:59 Temperature 98.2 F Pulse Rate 91 H 87 Respiratory 20 Rate Blood Pressure 117/66 O2 Sat by Pulse 95 Oximetry - Physical Exam Abdominal Exam: Soft, Non-Tender, Non-Distended Back: No CVA Tenderness - Plan Additional Information: IMP: progessing well. uti. urolithiasis, recurrent. rec/plan: Antibiotic rx. Pt prefers outpatient f/u and treatment of kidney stones. YS - Date & Time of Note Date: 10/28/16 Time: 11:30
[2016-10-28 15:47] VITALS: BP 162/86; PULSE 94; TEMP 97.6; O2SAT 96
--- NOTE | 2016-10-28 17:13 | CP.PCM.PN ---
Subjective - Date & Time of Evaluation Date of Evaluation: 10/28/16 Time of Evaluation: 17:13 - Subjective Subjective: Alert , awake, denies sob or chest pains, NAD, Objective - Vital Signs/Intake and Output Vital Signs (last 24 hours): Temp Pulse Resp BP Pulse Ox 97.6 F 94 H 20 162/86 H 96 10/28/16 15:45 10/28/16 15:45 10/28/16 15:45 10/28/16 15:45 10/28/16 15:45 Intake and Output: 10/28/16 10/28/16 06:59 18:59 Intake Total 1040 1250 Balance 1040 1250 - Medications Medications: Current Medications Aspirin (Ecotrin) 81 mg PO DAILY [facility] Last Admin: 10/28/16 10:06 Dose: 81 mg Enoxaparin Sodium (Lovenox) 60 mg SC DAILY [facility] Last Admin: 10/28/16 10:06 Dose: 60 mg Famotidine (Pepcid) 40 mg PO DAILY [facility] Last Admin: 10/28/16 10:06 Dose: 40 mg Trimethoprim/Sulfamethoxazole (240 mg/ Dextrose) 250 mls @ 250 mls/hr IVPB Q12 [facility] Last Admin: 10/28/16 10:06 Dose: 250 mls/hr Levothyroxine Sodium (Synthroid) 25 mcg PO DAILY@0630 [facility] Last Admin: 10/28/16 06:12 Dose: 25 mcg - Labs Labs: 10/27/16 07:00 10/27/16 07:00 PT 11.2 SECONDS (9.7-12.2) 10/20/16 16:27 INR 1.0 10/20/16 16:27 APTT 32 SECONDS (21-34) 10/20/16 16:27 Assessment and Plan - Assessment and Plan (Free Text) Assessment: Patient is seen and examined. Awake, alert, no sob or chest pains. Post cardiac cath 10/27, has mild CAD. D/W DR Do, plan to discharge home on bactrim ds orally for 5 more days for UTI. Advised to f/u in the office in 1 week. Patient verbalized understanding. Lives alone but has freinds to help as per patient.
--- NOTE | 2016-10-28 17:53 | CP.PCM.PN ---
Subjective - Date & Time of Evaluation Date of Evaluation: 10/28/16 Time of Evaluation: 09:30 - Subjective Subjective: no complaints stable wants to go home Objective - Vital Signs/Intake and Output Vital Signs (last 24 hours): Temp Pulse Resp BP Pulse Ox 97.6 F 94 H 20 162/86 H 96 10/28/16 15:45 10/28/16 15:45 10/28/16 15:45 10/28/16 15:45 10/28/16 15:45 Intake and Output: 10/28/16 10/28/16 06:59 18:59 Intake Total 1040 1250 Balance 1040 1250 - Labs Labs: 10/27/16 07:00 10/27/16 07:00 PT 11.2 SECONDS (9.7-12.2) 10/20/16 16:27 INR 1.0 10/20/16 16:27 APTT 32 SECONDS (21-34) 10/20/16 16:27 - Constitutional Appears: Well - Head Exam Head Exam: ATRAUMATIC, NORMAL INSPECTION, NORMOCEPHALIC - Eye Exam Eye Exam: EOMI, Normal appearance, PERRL Pupil Exam: NORMAL ACCOMODATION, PERRL - ENT Exam ENT Exam: Mucous Membranes Moist, Normal Exam - Neck Exam Neck Exam: Full ROM, Normal Inspection. absent: Lymphadenopathy - Respiratory Exam Respiratory Exam: Clear to Ausculation Bilateral, NORMAL BREATHING PATTERN - Cardiovascular Exam Cardiovascular Exam: REGULAR RHYTHM, +S1, +S2, Murmur - GI/Abdominal Exam GI & Abdominal Exam: Soft, Normal Bowel Sounds. absent: Tenderness - Exam Bimanual exam: NORMAL BIMANUAL EXAM - Extremities Exam Extremities Exam: Full ROM, Normal Capillary Refill, Normal Inspection. absent : Joint Swelling, Pedal Edema - Back Exam Back Exam: NORMAL INSPECTION - Neurological Exam Neurological Exam: Alert, Awake, CN II-XII Intact, Oriented x3 - Psychiatric Exam Psychiatric exam: Normal Affect, Normal Mood - Skin Skin Exam: Dry, Intact, Normal Color, Warm Assessment and Plan (1) Syncope and collapse Assessment & Plan: most likely vasovagal mild CAD hydration Status: Acute (2) HALL (dyspnea on exertion) Assessment & Plan: 2' to diastolic CHF and COPD Status: Acute (3) History of pulmonary embolism Status: Chronic (4) Kidney stones Status: Acute (5) Pyelonephritis Status: Acute
--- NOTE | 2016-11-02 09:21 | CON ---
DATE: 10/26/2016 UROLOGY CONSULTATION REASON FOR CONSULTATION: Urolithiasis. HISTORY OF PRESENT ILLNESS: The patient is a 76-year-old female with urolithiasis. The patient is admitted for evaluation and treatment for syncope. She reports that she is feeling better at present. The patient has history of kidney stones, treated approximately 2 years ago. At that time, she reports that she passed stones. The patient reports no recent hematuria. The patient has occasional left flank pain. The patient has had previous urinary tract infection. At present, the patient reports no dysuria. No hematuria. No nausea or vomiting. The patient has been started on antibiotic therapy for urinary tract infection. See attached reports. The patient has had Infectious Disease care and consultation as well. The patient had presented to the emergency room with syncope. The patient was found to have abnormal EKG as well. Medical care and consultation had been provided during this admission. The patient reports no chest pain. No seizures or stroke. The patient reports that she is eager for discharge, so she can take care of her pets at home. Mrs. Lazaro reports that she urinates with good urinary stream, good control. She has nocturia x2. PHYSICAL EXAMINATION: GENERAL: The patient is a well-developed, well-nourished elderly female. The patient is awake and alert. ABDOMEN: Soft, nontender and nondistended. No mass or organomegaly. BACK: No CVA tenderness. LABORATORY DATA: Reviewed. CT scan is reviewed. The patient had left-sided urolithiasis. At present, these stones are not causing obstruction. Further laboratory data are as noted. White blood count 7,300, hematocrit 37. BUN 19, creatinine 1.1. Urinalysis reveals 3+ leukocyte esterase, 123 red blood cells, 307 white blood cells. Urine culture reveals Klebsiella pneumoniae on 10/20/2016. See attached reports. Repeat urine culture on 10/24/2016 revealed no growth. IMPRESSION: A 76-year-old female with left ureteral stone, urinary tract infection, syncope. RECOMMENDATION AND PLAN: Continue antibiotic therapy. Abdominal x-ray. The patient will require further therapy for stones. I advised regarding the treatment including possible cystoscopy and stent insertion. Possible ESWL therapy. Possible laser lithotripsy. Further therapy to follow according to the patient's clinical course. Thank you for recommending the patient for urology consultation. Norma Barraza MD cc: MD Rosa M Brown MD
--- NOTE | 2016-11-17 01:55 | DS ---
CHIEF COMPLAINT: Syncopal attack. HISTORY OF PRESENT ILLNESS: Ms. Tejas Hall is 76 years old lady came to the emergency room after syncopal attack. The patient states that she was walking down the stairs and started to feel like lightheadedness, sat down, and syncopized for several minutes. The patient reports that after she woke up, she felt being on left-sided of the chest radiating to the neck. Last syncopal episodes was in 2014. The patient has remote history of PE for which she was on blood thinner and resolved. The patient denies currently being on blood thinner, palpitation, visual changes, sensory changes, or facial drooping. The patient is seen and admitted. CAT scan of the chest and thyroid ultrasound done, brain MRI done, abdominal and pelvic ultrasound done, stress test done. CAT scan of abdominal done again. The patient went for catheterization, seen by Dr. Barraza, urologist; Dr. Garrison Florian, equipment manager; neurologist, Dr. Abdulaziz Mcdonnell; and ID was Dr. Redd Mcdonnell, improved after cath, had cleared by all consultants, sent home, follow with primary care physician and equipment manager. PAST MEDICAL HISTORY: COPD, kidney stones, pulmonary emboli. FAMILY HISTORY: Father and mother noncontributory. HABITS: No smoking. No drugs. No ethanol. ALLERGIES: THE PATIENT IS ALLERGIC TO PENICILLIN. REVIEW OF SYSTEMS: The patient seen and examined at the bedside, looking comfortable, anxious to go home. No nausea, vomiting or diarrhea. No hematuria or hematochezia. No swelling of the legs. No chest pain, no palpitations. No headache or dizziness. PHYSICAL EXAMINATION: VITAL SIGNS: Temperature 97.6, pulse 94. respiratory rate 20, blood pressure 160/86, pulse oximetry 96. HEENT: Head normocephalic and atraumatic. Eyes: PERRLA. Extraocular muscles intact. Conjunctivae clear. Nose patent. Mucous membranes moist. NECK: Supple. No carotid bruits. No JVD. No thyromegaly. CHEST: Bilaterally symmetrical. HEART: S1 and S2 positive. LUNGS: Clear to auscultation. ABDOMEN: Soft. Bowel sounds are present. No organomegaly. EXTREMITIES: No edema. No cyanosis. NEUROLOGIC: The patient is awake and alert. Moving all 4 extremities. No focal deficit. LABORATORY DATA: White blood cells 7.5, hemoglobin 12.1, hematocrit 35.7, platelets 226. Sodium 141, potassium 4.1, BUN 16, creatinine 1.0, glucose 89. ASSESSMENT AND PLAN: Ms. Tejas Hall is 76 years old lady came with syncope and collapse, most likely vasovagal, mild coronary artery disease, hydration is given MRI and CAT scan done. Neurologist cleared the patient, history of dyspnea on exertion, may be due to congestive heart failure and chronic obstructive pulmonary disease. Catheterization done by Dr. Florian, history of pulmonary embolism, chronic kidney stones acute, pyelonephritis acute, got treatment. Antibiotics given. Clear by the all the consultants, discharged home, follow up as an outpatient. Rosa M Do MD
== END 2016-10-28 17:45 | disposition home or self-care (01) | DRG 287 ==
LOC: C.ER 15:24 → C.9E 18:30 → C.6T 20:17
PROVIDERS: ADMIT Internal Medicine; ATTEND Internal Medicine
PROC: B2151ZZ Fluoroscopy of Left Heart using Low Osmolar Contrast (ICD-10-PCS; 2016-10-27)
PROC: B2111ZZ Fluoroscopy of Multiple Coronary Arteries using Low Osmolar Contrast (ICD-10-PCS; 2016-10-27)
PROC: 4A023N7 Measurement of Cardiac Sampling and Pressure, Left Heart, Percutaneous Approach (ICD-10-PCS; principal; 2016-10-27 07:00)
DX: R55 Syncope and collapse (principal); I25.118 Atherosclerotic heart disease of native coronary artery with other forms of angina pectoris; N39.0 Urinary tract infection, site not specified; I12.9 Hypertensive chronic kidney disease with stage 1 through stage 4 chronic kidney disease, or unspecified chronic kidney disease; J44.9 Chronic obstructive pulmonary disease, unspecified; N10 Acute pyelonephritis; B96.89 Other specified bacterial agents as the cause of diseases classified elsewhere; K80.20 Calculus of gallbladder without cholecystitis without obstruction; N18.9 Chronic kidney disease, unspecified; N20.0 Calculus of kidney; N28.1 Cyst of kidney, acquired; K21.9 Gastro-esophageal reflux disease without esophagitis; Z86.711 Personal history of pulmonary embolism; Z87.442 Personal history of urinary calculi; Z87.891 Personal history of nicotine dependence; Z88.0 Allergy status to penicillin